=== PATIENT | male | born 1955 | race Caucasian/White ===

== ENCOUNTER 2020-01-31 14:31 | Outpatient (CLI) | payer MEDICARE, OTHER, SELFPAY ==
--- NOTE | 2020-01-31 14:37 | USCV_ITS ---
Rocky Woodward Age: 65 Gender: M : 1955 Exam Date: 01/31/2020 14:46 Ordering Phys: Tu Harris M.D ([email or web address]) Technologist: Jonh Nguyen [place] [facility] [place]: HEART FAILURE BP: 120 / 70 HR: 84 Rhythm: Sinus Technical Quality: Good MEASUREMENTS (Male / Female) Normal Values 2D ECHO LV Diastolic Diameter PLAX 3.4 cm 4.2 - 5.9 / 3.9 - 5.3 cm LV Systolic Diameter PLAX 2.5 cm IVS Diastolic Thickness 0.9 cm 0.6 - 1.0 / 0.6 - 0.9 cm IVS Systolic Thickness 0.9 cm LVPW Diastolic Thickness 0.9 cm 0.6 - 1.0 / 0.6 - 0.9 cm LVPW Systolic Thickness 1.2 cm LVOT Diameter 2.0 cm LV Ejection Fraction 2D Teich 53.3 % LV Ejection Fraction MOD 2C 73.6 % LV Ejection Fraction 2C AL 73.8 % LA Diameter 3.3 cm LA Width 3.1 cm LA Height 3.3 cm RA Width 2.6 cm RA Height 3.2 cm Aorta at Sinotubular Diameter 0.9 cm M-MODE LV Diastolic Diameter MM 4.6 cm 4.2 - 5.9 / 3.9 - 5.3 cm LV Systolic Diameter MM 3.4 cm LV Ejection Fraction MM Teich 52.1 % IVS Diastolic Thickness MM 1.0 cm 0.6 - 1.0 / 0.6 - 0.9 cm IVS Systolic Thickness MM 1.0 cm LVPW Diastolic Thickness MM 0.9 cm 0.6 - 1.0 / 0.6 - 0.9 cm LVPW Systolic Thickness MM 1.5 cm RV Diastolic Diameter MM 1.6 cm Aortic Annulus Diameter 3.3 cm LA Ao Ratio MM 1.0 MV E Point Septal Separation 0.7 cm DOPPLER AV Peak Velocity 159.0 cm/s LVOT Peak Velocity 108.0 cm/s AV Area Cont Eq vti 1.9 cm squared AV Area Cont Eq pk 2.1 cm squared MV Area PHT 3.2 cm squared Mitral E to A Ratio 0.9 MV E' Velocity 13.0 cm/s Mitral E to MV E' Ratio 6.2 Mitral E to LV E' Lateral Ratio 5.3 Mitral E to LV E' Septal Ratio 7.3 TR Peak Velocity 566.0 cm/s TR Peak Gradient 128.3 mmHg TV Peak E Velocity 121.0 cm/s Right Atrial Pressure 3.0 mmHg Pulmonary Artery Systolic Pressu 131.1 mmHg PV Peak Velocity 120.0 cm/s FINDINGS Left Ventricle Normal LV size ejection fraction around 70%. Mild concentric left ventricular hypertrophy. Tethering movement of the septum, possibly from pacing.Grade I/IV diastolic dysfunction (abnormal relaxation filling pattern), normal to mildly elevated filling pressures. Right Ventricle Pacemaker wire in the right ventricle Right Atrium Pacemaker wire is noted Left Atrium Upper limit of normal size Mitral Valve Thickened mitral valve. Trace mitral valve regurgitation. Aortic Valve Thickened aortic valve. Tricuspid Valve No gross abnormalities noted Pulmonic Valve Pulmonic valve not well visualized. Pericardium No pericardial effusion. Aorta Normal aortic annulus size. CONCLUSIONS Normal LV size ejection fraction around 70%. Mild concentric left ventricular hypertrophy. Type I diastolic dysfunction. Tethering movement of the septum, possibly from pacing. Thickened mitral valve. Trace mitral valve regurgitation. There is no pericardial effusion. Dr Dorothea Collins MD FACC (Electronically Signed) Final Date: 31 January 2020 19:01 S
== END 2020-01-31 14:32 | disposition home or self-care (01) ==
LOC: US 14:33
PROVIDERS: PCP Family Medicine; Visit Provider Internal Medicine
DX: I50.9 Heart failure, unspecified (principal); I34.0 Nonrheumatic mitral (valve) insufficiency; I51.7 Cardiomegaly
CPT/HCPCS: 93306

== ENCOUNTER 2020-03-06 07:40 | Outpatient (CLI) | payer MEDICARE, SELFPAY ==
--- NOTE | 2020-03-06 07:55 | CT_ITS ---
WS: [id number] CT scan of the neck. Additional two-dimensional coronal and sagittal reconstruction was performed. Clinical Data: DYSPHAGIA Comparison: None. DLP: 2499.[address] scans at [facility] use at least one of these dose optimization techniques: automat ed exposure control; mA and/or kV adjustment per patient size (includes targeted exams where dose is matched to clinical indication); or iterative reconstruction. Findings: There is a soft tissue mass measuring 3.68 x 4.31 x 5.73 cm in anterior posterior, transverse and sup erior inferior dimensions respectively. This mass is located anterior to the vertebral bodies T1-T3 w ith the superior aspect of the xiphoid marking the midpoint of this mass. This soft tissue mass devia arnoldo the trachea from left to right and compresses it significantly. It also compresses the esophagus. This mass may arise from the left lobe of the thyroid or may invade the left lobe of the thyroid. Th e mass is of mixed density. There are lymph nodes noted in the supraclavicular region but none is enlarged. The salivary glands a re unremarkable. There is no prevertebral soft tissue swelling. The vocal cords are asymmetric. The t hyroid gland shows normal enhancement. The floor of the mouth and parapharyngeal spaces are normal. T he oral cavity is unremarkable. The carotid arteries bifurcate normally with minimal calcification in the cabrera. The cervical spine s hows osteoarthritic change from C3 through C7 with disc space narrowing from C3-C4 through C6-C7. The re is a slight subluxation of 0.2 cm of C4 on C5. The lung apices show no abnormalities. The portions of the intracranial circulation which are seen demonstrate no abnormalities. No erosion of the skull or skull base is seen. CT/CT neck w con* [id number] Impression: 1. Soft tissue mass with greatest dimension of 5.73 cm anterior to the T1-T3 le fransico causing deviation and compression of the trachea and compression of the eso phagus. The origin of this mass is unclear because it does either invade or sherlyn ses from the left lobe of the thyroid. 2. Asymmetry of the vocal cords.
--- NOTE | 2020-03-06 07:56 | CT_ITS ---
WS: [id number] CT scan of the chest with IV contrast, additional two-dimensional coronal and sagittal reconstruction was performed. 03/06/2020 Clinical Data: DYSPHAGIA Comparison: None. DLP: 630.[address] scans at [facility] use at least one of these dose optimization techniques: automat ed exposure control; mA and/or kV adjustment per patient size (includes targeted exams where dose is matched to clinical indication); or iterative reconstruction. Findings: There is a large mass in the superior mediastinum which was noted on the CT scan of the neck. This ma ss is of mixed density. The mass measures 4.44 x 5.14 x 5.16 cm in anterior posterior, transverse and superior-inferior dimensions respectively. The mass is deviating the trachea from left to right and compressing the esophagus. No nodules or effusions are seen. No lung masses are present. The heart size is normal with no perica rdial effusion. There is left coronary artery calcification. There is a 2-lead pacemaker with the gen erator in the right axilla. No pneumonia or pneumothorax is present. The pulmonary arterial system an d thoracic aorta demonstrate no abnormalities or dilatations. There is no axillary or significant med iastinal adenopathy. The upper abdomen shows nonobstructing central right renal calcification. The visualized liver, splee n, adrenal glands and pancreas are unremarkable. Moderate osteoarthritic change of the thoracic verte bral bodies is seen. CT/CT chest w con* [id number] Impression: 1. Superior mediastinal mass anterior to the T1-T3 vertebral body level which i s compressing and deviating the trachea from left to right. The origin of this mass is unclear. This is an atypical location for a thymoma, metastatic lesion or lymphoma. 2. Negative for lung masses. 3. Permanent pacemaker and nonobstructing central right renal calculi.
[2020-03-06] MEDS: iohexol 300 mg/mL 100 mL Btl IV ×2 (09:26→09:27)
== END 2020-03-06 07:41 | disposition home or self-care (01) ==
LOC: RADWPI 07:43
PROVIDERS: Family Provider Family Medicine; PCP Family Medicine; Visit Provider Specialist
DX: R13.10 Dysphagia, unspecified (principal); Z95.0 Presence of cardiac pacemaker; N20.0 Calculus of kidney
CPT/HCPCS: 70491; 71260; Q9967

== ENCOUNTER 2020-03-13 08:09 | Outpatient (CLI) | payer MEDICARE, SELFPAY ==
--- NOTE | 2020-03-13 | CT_ITS ---
WS: [id number] CT HEAD WITH AND WITHOUT CONTRAST HISTORY: PARALYSIS OF VOCAL CORDS TECHNIQUE: Noncontrast 2.5 mm axial images obtained from the vertex to the skull base. Additional elizabeth ging performed at 2.5 mm axial images status post IV contrast. Bone and soft tissue windows are revie wed. All CT scans at [facility] use at least one of these dose optimization techniques: a utomated exposure control; mA and/or kV adjustment per patient size (includes targeted exams where do se is matched to clinical indication); or iterative reconstruction. CONTRAST: Omnipaque 300; 95 mL IV. DLP: 1984.08 mGycm COMPARISON: None available. No acute intracranial hemorrhage, edema or midline shift. Mild atrophy predominantly involving the fr ontal lobes. Very mild microvascular ischemic disease. No prior infarcts. No enhancing mass or vascular malformations identified. Dural venous sinuses are normally enhancing. Visualized [place] is unremarkable. Paranasal sinuses as visualized: Clear. Mastoid air cells: Clear. Calvarium and scalp: Intact. CT/CT head wo/w con [id number] IMPRESSION: 1. No acute intracranial hemorrhage. 2. No mass or vascular malformation. 3. Mild bilateral frontal atrophy. Mild chronic microvascular ischemic disease .
[2020-03-13] MEDS: iohexol 300 mg/mL 100 mL Btl IV (08:52)
== END 2020-03-13 08:10 | disposition home or self-care (01) ==
LOC: RADWPI 08:14
PROVIDERS: Family Provider Family Medicine; PCP Family Medicine; Visit Provider Specialist
DX: J38.01 Paralysis of vocal cords and larynx, unilateral (principal); I67.82 Cerebral ischemia; G31.9 Degenerative disease of nervous system, unspecified
CPT/HCPCS: 70470; Q9967

== ENCOUNTER 2020-03-13 18:28 | Emergency (ER) | payer MEDICARE, SELFPAY ==
[2020-03-13] VITALS (11 sets, daily range): BP systolic 118–153; BP diastolic 49–80; PULSE 63–116; RESP 16–26; TEMP 37; O2SAT 88–96; BMI 19.7
--- NOTE | 2020-03-13 18:34 | XRR_ITS ---
PROCEDURE INFORMATION: Exam: XR Chest, 1 View Exam date and time: 03/13/2020 6:45 PM Age: 65 years old Clinical indication: Prior surgery; Surgery date: 6+ months; Surgery type: Pacemaker; Patient HX: SOB, coughing 2 months TECHNIQUE: Imaging protocol: XR of the chest Views: 1 view. COMPARISON: CT chest w con* [id number] 03/06/2020 9:16 AM FINDINGS: Tubes, catheters and devices: A pacemaker device is present, and its leads are in appropriate position. Lungs: The lungs are hyperinflated with mild interstitial prominence/fibrosis. No consolidation. The pulmonary vascularity is within normal limits. Pleural space: Unremarkable. No pleural effusion. No pneumothorax. Heart/Mediastinum: Unchanged left paratracheal mass/adenopathy is deviating the trachea to the right. No cardiomegaly. Bones/joints: No acute abnormality. XR/XR chest 1V portable [id number] IMPRESSION: 1. The lungs are hyperinflated but clear. 2. Large left paratracheal mass or adenopathy is seen on the CT scan of March 06 is again noted with deviation of the trachea to the right.
--- NOTE | 2020-03-13 18:34 | ECG_ITS ---
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 Measurements Intervals [place] Rate: 81 P: 66 NC: 191 QRS: 83 QRSD: 166 T: 2 QT: 401 QTc: 468 Interpretive Statements A sense V paced rhythm No previous ECG available for comparison Electronically Signed On 03-14-2020 18:01:15 CDT by Renay Yee M.D. [id number]
[2020-03-13 18:55] LABS: Basophils # 0.1 10^3/uL (0.0-0.1); Basophils % 0.6 %; Eosinophils # 0.2 10^3/uL (0.0-0.8); Eosinophils % 1.4 %; Hematocrit 47.9 % (42.0-52.0); Hemoglobin 15.7 g/dL (11.7-16.6); Lymphocytes # 2.8 10^3/uL (0.8-4.8); Lymphocytes % 23.3 %; Mean Corpuscular HGB Conc 32.8 g/dL (30.0-36.0); Mean Corpuscular Hemoglobin 28.4 pg (28.0-34.0); Mean Corpuscular Volume 86.6 fL (80-94); Mean Platelet Volume 9.8 fL (7.4-10.4); Monocytes # 1.8 10^3/uL (0.2-0.9); Monocytes % 14.8 %; Neutrophils # 7.21 10^3/uL (1.8-7.7); Neutrophils % 59.6 %; Nucleated Red Blood Cells % 0 %; Platelet Count 273 10^3/cmm (130-400); Red Blood Count 5.53 10^6/uL (4.1-5.3); Red Cell Distribution Width 13.3 % (12.1-15.1); White Blood Count 12.1 10^3/uL (4.0-10.0)
[2020-03-13 19:48] LABS: Lactic Sepsis W/Reflex 1.6 mmol/L (0.5-2.2)
[2020-03-13 19:50] LABS: Alanine Aminotransferase 11 U/L (0-41); Albumin Level 3.9 g/dL (3.5-5.2); Alkaline Phosphatase 82 IU/L (40-130); Anion Gap 15.1 (5-19); Aspartate Amino Transferase 18 U/L (0-40); Blood Urea Nitrogen 10 mg/dL (8-23); Carbon Dioxide 28 mmol/L (22-29); Chloride 94 mmol/L (98-107); Globulin 2.9 g/dL (1.3-4.6); Glomerular Filtration Rate 113.5 mL/min (90-130); Glucose 145 mg/dL (65-115); Osmolality Calculated 278 mOsm/kg (285-295); Potassium 4.1 mmol/L (3.5-5.1); Sodium 133 mmol/L (136-145); Total Bilirubin 0.3 mg/dL (0.15-1.2); Total Protein 6.8 g/dL (6.6-8.7)
[2020-03-13 19:51] LABS: Troponin(5th) Baseline 8 ng/L (0-15)
[2020-03-13 20:31] LABS: ABG PCO2 47.3 mmHg (35-45); Arterial Blood Gas Hematocrit 46.8 % (42-52); Base Excess ABG 3.2 mmol/L (-2.0-2.0); Blood Gas Allen Test Pos; Blood Gas Sample Type Arterial; Carboxyhemoglobin 3.5 %THgb (0.4-20.1); HGB O2 Sat 95.3 % (95-100); Ionized Calcium Level - ABG 1.2 mmol/L (1.1-1.4); Methemoglobin 0.7 % (0.4-1.5); Oxygen Saturation ABG 99.5; Potassium Level - ABG 4.5 mmol/L (3.5-5.0); Total Hemoglobin 15.3 g/dL (14-18)
[2020-03-13 20:32] LABS: Blood Gas Sample Site Brachial, right; Oxygen Device NC
--- NOTE | 2020-03-13 20:34 | ECG_ITS ---
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 Measurements Intervals [place] Rate: 69 P: 63 NH: 185 QRS: -5 QRSD: 153 T: 17 QT: 418 QTc: 450 Interpretive Statements ELECTRONIC ATRIAL PACEMAKER ELECTRONIC VENTRICULAR PACEMAKER No previous ECG available for comparison Electronically Signed On 03-14-2020 18:11:59 CDT by Renay Yee M.D. [id number]
--- NOTE | 2020-03-13 20:41 | W.ED.SOB ---
Documented by User: Kaylie Drake MD 03/15/20 11:32 HPI - SOB/Dyspnea General: Chief Complaint: Shortness of Breath/Dyspnea Stated Complaint: ACUTE RESP DISTRESS Time Seen by Provider: 03/13/20 18:44 History of Present Illness: HPI Narrative: This patient is a 65-year-old gentleman comes in today with shortness of breath. He has been having increasing shortness of breath over a month or more. He saw Dr. 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 He has had CTs and has more imaging scheduled. He has not followed up yet after the CTs were done. He has a history of sick sinus syndrome and has pacemaker on the right side. He denies any other medical history. He is a smoker but said he is never been told that he had COPD. He does have some inhalers but said they have not been helping. The last couple of days have been really bad with his breathing. MD elicited complaint: shortness of breath Onset (ago): week(s) (2) Associated symptoms: Deny abdominal pain, chest pain, fever(s), nausea or vomiting Review of Systems General: Reports: 10 or more systems reviewed and unremarkable except in HPI and below Const: Denies: fever(s), chills, fatigue or malaise Eyes: Denies: change in vision ENMT: Denies: odynophagia Card: Denies: chest pain or swelling of feet/ankles Resp: Reports: dyspnea, productive cough, wheezing and pain on inspiration; Denies: non-productive cough GI: Denies: abdominal pain, nausea or vomiting : Denies: flank pain Musc: Denies: neck pain or back pain Skin/Breast: Denies: rash Neuro: Denies: headache(s), numbness in extremities or weakness in extremities Elliot/Lymph: Denies: easy bruising or easy bleeding PFSH ED PFSH: Medical History Congestive heart failure History of hypertension History of pacemaker Hx of smoking Hypertension Tobacco abuse Surgical History History of permanent cardiac pacemaker placement Physical Exam Const: COMMON NORMALS: patient oriented x3 and alert GENERAL APPEARANCE: cooperative and anxious NUTRITIONAL APPEARANCE: thin HENMT: HEAD & SCALP: normal to inspection FACE & SINUS: normal facial exam Eye: GENERAL EYE: appearance normal, both eyes and all related structures Neck/C-Spine: COMMON NORMALS: supple, no meningeal signs and no JVD GENERAL: Yes normal visual inspection and Yes trachea midline Chest: COMMONS NORMALS: normal inspection of the chest Resp: COMMON NORMALS: clear to auscultation bilaterally EFFORT & INSPECTION: Yes tachypneic, Yes respiratory distress, Yes labored, Yes stridor, Yes Actively coughing and Yes uses accessory muscles AUSCULTATION: clear to auscultation bilaterally Cardio: COMMON NORMALS: no JVD, regular rate, regular rhythm and No murmurs present (Cardio) RATE: regular rate RHYTHM: regular rhythm GI: COMMON NORMALS: Normal to inspection, nondistended, normoactive bowel sounds present, Soft to palpation and non-tender INSPECTION: Yes normal to inspection AUSCULTATION: Yes normoactive bowel sounds PALPATION: Yes Soft to palpation Back/Pelvis: COMMON NORMALS: thoracic and lumbar spine normal to inspection Extremity: COMMON NORMALS: normal to inspection Neuro: COMMON NORMALS: patient oriented x3, moves all extremities, no focal motor deficits and no sensory deficits noted SENSORIUM/ORIENTATION: Yes alert MENINGEAL SIGNS: Yes no meningeal signs Psych: COMMON NORMALS: mental status grossly normal, cooperative and normal affect Skin: COMMON NORMALS: no rashes or lesions noted and turgor normal GENERAL SKIN EXAM: no rashes or lesions noted and turgor normal Course ED course: This patient presented with sats in the high 80s to 90 on room air. On a couple liters of oxygen he is 92 to 94%. He is in obvious distress. He is able to talk but has a very hoarse sounding voice. He is having coughing with thick mucus that is difficult for him to clear. 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 I spoke with Dr. Rojas, who had ordered the CTs. He is an ENT physician and because of the location of the mass is not able to help me today. He recommended finding CT surgery to help. Our CT surgeon is not available this weekend. We will call around and try to find a bed. Reevaluation(s): Reevaluation #1: After multiple calls to multiple hospitals, I spoke with Dr. Chante Jc at [facility] [place]. He is a CT surgeon and felt that he could accept the patient but not until the morning when he would have a sheet rocker available to intubate the patient for procedure such as biopsy or radiation. He will call us back in the morning if he is able to secure pulmonary backup and if there is a bed available at that time. In the meanwhile we will continue looking for a facility but it is unlikely at this point that we will find one. Vital Signs: Vital signs: Vital Signs Temperature 98.1 F 03/14/20 06:50 Pulse Rate 95 03/14/20 09:26 Respiratory Rate 18 03/14/20 09:26 Blood Pressure 123/74 03/14/20 09:26 Pulse Oximetry 95 03/14/20 09:26 MDM - SOB/Dyspnea Lab Data: Labs: Lab Results 03/13/20 03/13/20 03/13/20 Range/Units 18:43 18:43 18:43 WBC 12.1 H (4.0-10.0) 10^3/ uL RBC 5.53 H (4.1-5.3) 10^6/u L Hgb 15.7 (11.7-16.6) g/dL Hct 47.9 (42.0-52.0) % MCV 86.6 (80-94) fL MCH 28.4 (28.0-34.0) pg MCHC 32.8 (30.0-36.0) g/dL RDW 13.3 (12.1-15.1) % Plt Count 273 (130-400) 10^3/c mm MPV 9.8 (7.4-10.4) fL Neut % (Auto) 59.6 % Lymph % (Auto) 23.3 % [place] % (Auto) 14.8 % Eos % (Auto) 1.4 % Baso % (Auto) 0.6 % Neut # (Auto) 7.21 (1.8-7.7) 10^3/u L Lymph # (Auto) 2.8 (0.8-4.8) 10^3/u L [place] # (Auto) 1.8 H (0.2-0.9) 10^3/u L Eos # (Auto) 0.2 (0.0-0.8) 10^3/u L Baso # (Auto) 0.1 (0.0-0.1) 10^3/u L Nucleated RBC % (a uto) 0 % Nucleated RBCs # 0.0 /100WBC Specimen Type Sample Site ABG pH (7.35-7.45) ABG pCO2 (35-45) mmHg ABG pO2 (80.0-100.0) mmH g ABG HCO3 (22-26) mmol/L ABG O2 Saturation ABG Base Excess (-2.0-2.0) mmol/ L Jin Test Hematocrit (42-52) % Hgb O2 Saturation (95-100) % Carboxyhemoglobin (0.4-20.1) %THgb Methemoglobin (0.4-1.5) % Total Hemoglobin (14-18) g/dL Ionized Calcium (1.1-1.4) mmol/L O2 Delivery Device O2 Liters/Min % Operations Inspector ID Sodium Cancelled Potassium Cancelled Chloride Cancelled Carbon Dioxide Cancelled Anion Gap Cancelled BUN Cancelled Creatinine Cancelled GFR Calculation Cancelled Glucose Cancelled Calculated Osmolal ity Cancelled Lactic Acid Calcium Cancelled Total Bilirubin Cancelled AST Cancelled ALT Cancelled Alkaline Phosphata se Cancelled Troponin T Baselin e Cancelled Troponin T [address] [place] (0-15) ng/L Delta Troponin T (0-10) ABS# Troponin T Hi Sens 6Hr (0-15) ng/L Troponin T Hi Sens 6Hr Delta (0-12) ng/L Total Protein Cancelled Albumin Cancelled Globulin Cancelled SARS-CoV-2 Ag (Rap id) (Negative) 03/13/20 03/13/20 03/13/20 Range/Units 18:43 19:14 19:14 WBC (4.0-10.0) 10^3/ uL RBC (4.1-5.3) 10^6/u L Hgb (11.7-16.6) g/dL Hct (42.0-52.0) % MCV (80-94) fL MCH (28.0-34.0) pg MCHC (30.0-36.0) g/dL RDW (12.1-15.1) % Plt Count (130-400) 10^3/c mm MPV (7.4-10.4) fL Neut % (Auto) % Lymph % (Auto) % [place] % (Auto) % Eos % (Auto) % Baso % (Auto) % Neut # (Auto) (1.8-7.7) 10^3/u L Lymph # (Auto) (0.8-4.8) 10^3/u L [place] # (Auto) (0.2-0.9) 10^3/u L Eos # (Auto) (0.0-0.8) 10^3/u L Baso # (Auto) (0.0-0.1) 10^3/u L Nucleated RBC % (a uto) % Nucleated RBCs # /100WBC Specimen Type Sample Site ABG pH (7.35-7.45) ABG pCO2 (35-45) mmHg ABG pO2 (80.0-100.0) mmH g ABG HCO3 (22-26) mmol/L ABG O2 Saturation ABG Base Excess (-2.0-2.0) mmol/ L Jin Test Hematocrit (42-52) % Hgb O2 Saturation (95-100) % Carboxyhemoglobin (0.4-20.1) %THgb Methemoglobin (0.4-1.5) % Total Hemoglobin (14-18) g/dL Ionized Calcium (1.1-1.4) mmol/L O2 Delivery Device O2 Liters/Min % Operations Inspector ID Sodium 133 L Potassium 4.1 Chloride 94 L Carbon Dioxide 28 Anion Gap 15.1 BUN 10 Creatinine 0.7 GFR Calculation 113.5 Glucose 145 H Calculated Osmolal ity 278 L Lactic Acid Cancelled Calcium 9.0 Total Bilirubin 0.3 AST 18 ALT 11 Alkaline Phosphata se 82 Troponin T Baselin e 8 Troponin T [address] [place] (0-15) ng/L Delta Troponin T (0-10) ABS# Troponin T Hi Sens 6Hr (0-15) ng/L Troponin T Hi Sens 6Hr Delta (0-12) ng/L Total Protein 6.8 Albumin 3.9 Globulin 2.9 SARS-CoV-2 Ag (Rap id) (Negative) 03/13/20 03/13/20 03/13/20 Range/Units 19:14 20:20 21:08 WBC (4.0-10.0) 10^3/ uL RBC (4.1-5.3) 10^6/u L Hgb (11.7-16.6) g/dL Hct (42.0-52.0) % MCV (80-94) fL MCH (28.0-34.0) pg MCHC (30.0-36.0) g/dL RDW (12.1-15.1) % Plt Count (130-400) 10^3/c mm MPV (7.4-10.4) fL Neut % (Auto) % Lymph % (Auto) % [place] % (Auto) % Eos % (Auto) % Baso % (Auto) % Neut # (Auto) (1.8-7.7) 10^3/u L Lymph # (Auto) (0.8-4.8) 10^3/u L [place] # (Auto) (0.2-0.9) 10^3/u L Eos # (Auto) (0.0-0.8) 10^3/u L Baso # (Auto) (0.0-0.1) 10^3/u L Nucleated RBC % (a uto) % Nucleated RBCs # /100WBC Specimen Type Arterial Sample Site Brachial, right ABG pH 7.40 (7.35-7.45) ABG pCO2 47.3 H (35-45) mmHg ABG pO2 129.0 H (80.0-100.0) mmH g ABG HCO3 29.0 H (22-26) mmol/L ABG O2 Saturation 99.5 ABG Base Excess 3.2 H (-2.0-2.0) mmol/ L Jin Test Pos Hematocrit 46.8 (42-52) % Hgb O2 Saturation 95.3 (95-100) % Carboxyhemoglobin 3.5 (0.4-20.1) %THgb Methemoglobin 0.7 (0.4-1.5) % Total Hemoglobin 15.3 (14-18) g/dL Ionized Calcium 1.2 (1.1-1.4) mmol/L O2 Delivery Device Nc O2 Liters/Min 3.0 % Operations Inspector ID Jlg Sodium 135.0 Potassium 4.5 Chloride Carbon Dioxide Anion Gap BUN Creatinine GFR Calculation Glucose 123.0 H Calculated Osmolal ity Lactic Acid 1.6 Calcium Total Bilirubin AST ALT Alkaline Phosphata se Troponin T Baselin e Troponin T [address] [place] 6.52 (0-15) ng/L Delta Troponin T -1.48 L (0-10) ABS# Troponin T Hi Sens 6Hr (0-15) ng/L Troponin T Hi Sens 6Hr Delta (0-12) ng/L Total Protein Albumin Globulin SARS-CoV-2 Ag (Rap id) (Negative) 03/13/20 03/14/20 Range/Units 23:10 00:25 WBC (4.0-10.0) 10^3/ uL RBC (4.1-5.3) 10^6/u L Hgb (11.7-16.6) g/dL Hct (42.0-52.0) % MCV (80-94) fL MCH (28.0-34.0) pg MCHC (30.0-36.0) g/dL RDW (12.1-15.1) % Plt Count (130-400) 10^3/c mm MPV (7.4-10.4) fL Neut % (Auto) % Lymph % (Auto) % [place] % (Auto) % Eos % (Auto) % Baso % (Auto) % Neut # (Auto) (1.8-7.7) 10^3/u L Lymph # (Auto) (0.8-4.8) 10^3/u L [place] # (Auto) (0.2-0.9) 10^3/u L Eos # (Auto) (0.0-0.8) 10^3/u L Baso # (Auto) (0.0-0.1) 10^3/u L Nucleated RBC % (a uto) % Nucleated RBCs # /100WBC Specimen Type Sample Site ABG pH (7.35-7.45) ABG pCO2 (35-45) mmHg ABG pO2 (80.0-100.0) mmH g ABG HCO3 (22-26) mmol/L ABG O2 Saturation ABG Base Excess (-2.0-2.0) mmol/ L Jin Test Hematocrit (42-52) % Hgb O2 Saturation (95-100) % Carboxyhemoglobin (0.4-20.1) %THgb Methemoglobin (0.4-1.5) % Total Hemoglobin (14-18) g/dL Ionized Calcium (1.1-1.4) mmol/L O2 Delivery Device O2 Liters/Min % Operations Inspector ID Sodium Potassium Chloride Carbon Dioxide Anion Gap BUN Creatinine GFR Calculation Glucose Calculated Osmolal ity Lactic Acid Calcium Total Bilirubin AST ALT Alkaline Phosphata se Troponin T Baselin e Troponin T [address] [place] (0-15) ng/L Delta Troponin T (0-10) ABS# Troponin T Hi Sens 6Hr 6.00 (0-15) ng/L Troponin T Hi Sens 6Hr Delta -2.00 L (0-12) ng/L Total Protein Albumin Globulin SARS-CoV-2 Ag (Rap id) Negative (Negative) Discharge Plan Discharge Patient Disposition: Xfer Other Referrals: Ariel Miller MD [Primary Care Provider] - Discharge Date/Time: 03/14/20 09:32 Sign Out Sign Out Data: Patient Sign Out occurred on 03/14/20 at 00:16. Patient's care was discussed, and care was transferred from to Kelly Bradshaw. Patient Sign Out occurred on 03/14/20 at 06:42. Patient's care was discussed, and care was transferred from Kelly Bradshaw to Lee Mathew DO. Sign Out Comment: Case turned over to Dr. Mathew at change of shift. Last updated by Kelly Bradshaw at 03/14/20 05:46 Coding Level of Care Code ED Production Boring Machine Operator for Chg Fwd Exam Comprehensive Documented by User: Kelly Bradshaw 03/14/20 05:06 HPI - SOB/Dyspnea General: Chief Complaint: Shortness of Breath/Dyspnea Stated Complaint: ACUTE RESP DISTRESS Time Seen by Provider: 03/13/20 18:44 PFSH ED PFSH: Medical History Congestive heart failure History of hypertension History of pacemaker Hx of smoking Hypertension Tobacco abuse Surgical History History of permanent cardiac pacemaker placement Course ED course: 0505 -patient was signed out to me from Dr. Drake. Please see her note for history, physical exam and medical decision-making notes. At the time of my evaluation the patient still has rhonchorous lung sounds but his vital signs are stable and on the oxygen mask his pulse ox is 92%. Blood pressure is good and he is not tachycardic. He denies any pains, chills or ill feelings. He is asking for a breakfast tray this morning which I will arrange. Patient's care be turned over to Dr. Mathew this morning with the plan still to transfer to [facility] once the cardiothoracic surgeon arrange for the appropriate bed and backup. Vital Signs: Vital signs: Vital Signs Temperature 98.1 F 03/14/20 06:50 Pulse Rate 95 03/14/20 09:26 Respiratory Rate 18 03/14/20 09:26 Blood Pressure 123/74 03/14/20 09:26 Pulse Oximetry 95 03/14/20 09:26 MDM - SOB/Dyspnea Lab Data: Labs: Lab Results 03/13/20 03/13/20 03/13/20 Range/Units 18:43 18:43 18:43 WBC 12.1 H (4.0-10.0) 10^3/ uL RBC 5.53 H (4.1-5.3) 10^6/u L Hgb 15.7 (11.7-16.6) g/dL Hct 47.9 (42.0-52.0) % MCV 86.6 (80-94) fL MCH 28.4 (28.0-34.0) pg MCHC 32.8 (30.0-36.0) g/dL RDW 13.3 (12.1-15.1) % Plt Count 273 (130-400) 10^3/c mm MPV 9.8 (7.4-10.4) fL Neut % (Auto) 59.6 % Lymph % (Auto) 23.3 % [place] % (Auto) 14.8 % Eos % (Auto) 1.4 % Baso % (Auto) 0.6 % Neut # (Auto) 7.21 (1.8-7.7) 10^3/u L Lymph # (Auto) 2.8 (0.8-4.8) 10^3/u L [place] # (Auto) 1.8 H (0.2-0.9) 10^3/u L Eos # (Auto) 0.2 (0.0-0.8) 10^3/u L Baso # (Auto) 0.1 (0.0-0.1) 10^3/u L Nucleated RBC % (a uto) 0 % Nucleated RBCs # 0.0 /100WBC Specimen Type Sample Site ABG pH (7.35-7.45) ABG pCO2 (35-45) mmHg ABG pO2 (80.0-100.0) mmH g ABG HCO3 (22-26) mmol/L ABG O2 Saturation ABG Base Excess (-2.0-2.0) mmol/ L Jin Test Hematocrit (42-52) % Hgb O2 Saturation (95-100) % Carboxyhemoglobin (0.4-20.1) %THgb Methemoglobin (0.4-1.5) % Total Hemoglobin (14-18) g/dL Ionized Calcium (1.1-1.4) mmol/L O2 Delivery Device O2 Liters/Min % Operations Inspector ID Sodium Cancelled Potassium Cancelled Chloride Cancelled Carbon Dioxide Cancelled Anion Gap Cancelled BUN Cancelled Creatinine Cancelled GFR Calculation Cancelled Glucose Cancelled Calculated Osmolal ity Cancelled Lactic Acid Calcium Cancelled Total Bilirubin Cancelled AST Cancelled ALT Cancelled Alkaline Phosphata se Cancelled Troponin T Baselin e Cancelled Troponin T [address] [place] (0-15) ng/L Delta Troponin T (0-10) ABS# Troponin T Hi Sens 6Hr (0-15) ng/L Troponin T Hi Sens 6Hr Delta (0-12) ng/L Total Protein Cancelled Albumin Cancelled Globulin Cancelled SARS-CoV-2 Ag (Rap id) (Negative) 03/13/20 03/13/20 03/13/20 Range/Units 18:43 19:14 19:14 WBC (4.0-10.0) 10^3/ uL RBC (4.1-5.3) 10^6/u L Hgb (11.7-16.6) g/dL Hct (42.0-52.0) % MCV (80-94) fL MCH (28.0-34.0) pg MCHC (30.0-36.0) g/dL RDW (12.1-15.1) % Plt Count (130-400) 10^3/c mm MPV (7.4-10.4) fL Neut % (Auto) % Lymph % (Auto) % [place] % (Auto) % Eos % (Auto) % Baso % (Auto) % Neut # (Auto) (1.8-7.7) 10^3/u L Lymph # (Auto) (0.8-4.8) 10^3/u L [place] # (Auto) (0.2-0.9) 10^3/u L Eos # (Auto) (0.0-0.8) 10^3/u L Baso # (Auto) (0.0-0.1) 10^3/u L Nucleated RBC % (a uto) % Nucleated RBCs # /100WBC Specimen Type Sample Site ABG pH (7.35-7.45) ABG pCO2 (35-45) mmHg ABG pO2 (80.0-100.0) mmH g ABG HCO3 (22-26) mmol/L ABG O2 Saturation ABG Base Excess (-2.0-2.0) mmol/ L Jin Test Hematocrit (42-52) % Hgb O2 Saturation (95-100) % Carboxyhemoglobin (0.4-20.1) %THgb Methemoglobin (0.4-1.5) % Total Hemoglobin (14-18) g/dL Ionized Calcium (1.1-1.4) mmol/L O2 Delivery Device O2 Liters/Min % Operations Inspector ID Sodium 133 L Potassium 4.1 Chloride 94 L Carbon Dioxide 28 Anion Gap 15.1 BUN 10 Creatinine 0.7 GFR Calculation 113.5 Glucose 145 H Calculated Osmolal ity 278 L Lactic Acid Cancelled Calcium 9.0 Total Bilirubin 0.3 AST 18 ALT 11 Alkaline Phosphata se 82 Troponin T Baselin e 8 Troponin T [address] [place] (0-15) ng/L Delta Troponin T (0-10) ABS# Troponin T Hi Sens 6Hr (0-15) ng/L Troponin T Hi Sens 6Hr Delta (0-12) ng/L Total Protein 6.8 Albumin 3.9 Globulin 2.9 SARS-CoV-2 Ag (Rap id) (Negative) 10/09/20 10/09/20 10/09/20 Range/Units 19:14 20:20 21:08 WBC (4.0-10.0) 10^3/ uL RBC (4.1-5.3) 10^6/u L Hgb (11.7-16.6) g/dL Hct (42.0-52.0) % MCV (80-94) fL MCH (28.0-34.0) pg MCHC (30.0-36.0) g/dL RDW (12.1-15.1) % Plt Count (130-400) 10^3/c mm MPV (7.4-10.4) fL Neut % (Auto) % Lymph % (Auto) % [place] % (Auto) % Eos % (Auto) % Baso % (Auto) % Neut # (Auto) (1.8-7.7) 10^3/u L Lymph # (Auto) (0.8-4.8) 10^3/u L [place] # (Auto) (0.2-0.9) 10^3/u L Eos # (Auto) (0.0-0.8) 10^3/u L Baso # (Auto) (0.0-0.1) 10^3/u L Nucleated RBC % (a uto) % Nucleated RBCs # /100WBC Specimen Type Arterial Sample Site Brachial, right ABG pH 7.40 (7.35-7.45) ABG pCO2 47.3 H (35-45) mmHg ABG pO2 129.0 H (80.0-100.0) mmH g ABG HCO3 29.0 H (22-26) mmol/L ABG O2 Saturation 99.5 ABG Base Excess 3.2 H (-2.0-2.0) mmol/ L Jin Test Pos Hematocrit 46.8 (42-52) % Hgb O2 Saturation 95.3 (95-100) % Carboxyhemoglobin 3.5 (0.4-20.1) %THgb Methemoglobin 0.7 (0.4-1.5) % Total Hemoglobin 15.3 (14-18) g/dL Ionized Calcium 1.2 (1.1-1.4) mmol/L O2 Delivery Device Nc O2 Liters/Min 3.0 % Operations Inspector ID Jlg Sodium 135.0 Potassium 4.5 Chloride Carbon Dioxide Anion Gap BUN Creatinine GFR Calculation Glucose 123.0 H Calculated Osmolal ity Lactic Acid 1.6 Calcium Total Bilirubin AST ALT Alkaline Phosphata se Troponin T Baselin e Troponin T [address] [place] 6.52 (0-15) ng/L Delta Troponin T -1.48 L (0-10) ABS# Troponin T Hi Sens 6Hr (0-15) ng/L Troponin T Hi Sens 6Hr Delta (0-12) ng/L Total Protein Albumin Globulin SARS-CoV-2 Ag (Rap id) (Negative) 03/13/20 03/14/20 Range/Units 23:10 00:25 WBC (4.0-10.0) 10^3/ uL RBC (4.1-5.3) 10^6/u L Hgb (11.7-16.6) g/dL Hct (42.0-52.0) % MCV (80-94) fL MCH (28.0-34.0) pg MCHC (30.0-36.0) g/dL RDW (12.1-15.1) % Plt Count (130-400) 10^3/c mm MPV (7.4-10.4) fL Neut % (Auto) % Lymph % (Auto) % [place] % (Auto) % Eos % (Auto) % Baso % (Auto) % Neut # (Auto) (1.8-7.7) 10^3/u L Lymph # (Auto) (0.8-4.8) 10^3/u L [place] # (Auto) (0.2-0.9) 10^3/u L Eos # (Auto) (0.0-0.8) 10^3/u L Baso # (Auto) (0.0-0.1) 10^3/u L Nucleated RBC % (a uto) % Nucleated RBCs # /100WBC Specimen Type Sample Site ABG pH (7.35-7.45) ABG pCO2 (35-45) mmHg ABG pO2 (80.0-100.0) mmH g ABG HCO3 (22-26) mmol/L ABG O2 Saturation ABG Base Excess (-2.0-2.0) mmol/ L Jin Test Hematocrit (42-52) % Hgb O2 Saturation (95-100) % Carboxyhemoglobin (0.4-20.1) %THgb Methemoglobin (0.4-1.5) % Total Hemoglobin (14-18) g/dL Ionized Calcium (1.1-1.4) mmol/L O2 Delivery Device O2 Liters/Min % Operations Inspector ID Sodium Potassium Chloride Carbon Dioxide Anion Gap BUN Creatinine GFR Calculation Glucose Calculated Osmolal ity Lactic Acid Calcium Total Bilirubin AST ALT Alkaline Phosphata se Troponin T Baselin e Troponin T [address] [place] (0-15) ng/L Delta Troponin T (0-10) ABS# Troponin T Hi Sens 6Hr 6.00 (0-15) ng/L Troponin T Hi Sens 6Hr Delta -2.00 L (0-12) ng/L Total Protein Albumin Globulin SARS-CoV-2 Ag (Rap id) Negative (Negative) Discharge Plan Discharge Patient Disposition: Xfer Other Referrals: Ariel Miller MD [Primary Care Provider] - Discharge Date/Time: 03/14/20 09:32 Sign Out Sign Out Data: Patient Sign Out occurred on 03/14/20 at 00:16. Patient's care was discussed, and care was transferred from to Kelly Bradshaw. Patient Sign Out occurred on 03/14/20 at 06:42. Patient's care was discussed, and care was transferred from Kelly Bradshaw to Lee Mathew DO. Sign Out Comment: Case turned over to Dr. Mathew at change of shift. Last updated by Kelly Bradshaw at 03/14/20 05:46 Coding Level of Care Code ED Production Boring Machine Operator for Chg Fwd Exam Comprehensive Documented by User: Lee Mathew DO 03/14/20 10:00 HPI - SOB/Dyspnea General: Chief Complaint: Shortness of Breath/Dyspnea Stated Complaint: ACUTE RESP DISTRESS Time Seen by Provider: 03/13/20 18:44 PFSH ED PFSH: Medical History Congestive heart failure History of hypertension History of pacemaker Hx of smoking Hypertension Tobacco abuse Surgical History History of permanent cardiac pacemaker placement Procedures Intubation Time out performed: Yes sedative: Etomidate Mg Given: 20 paralytic: Succinylcholine Mg Given: 60 Laryngoscope: fiber optic video scope Assist Device Used: fiber optic device ET Tube Size: 6.5 ET Tube Uncuffed: No Tube Secured Depth (cm): 27 Tube Secured Location: teeth Tube Placement Confirmation: visualized tube passing through cords, equal breath sounds bilaterally, no breath sounds over epigastrium and confirmation by capnometry Patient Tolerated Procedure: well Intubation Complications: difficult intubation Additional Comments: Patient is a mediastinal mass. I reviewed the CT findings done previously prior to intubation the opening was to the right. We initially went to the smallest potential ET tube in order to make sure that we passed through the mass without disturbing it too much. At the first attempt were able to ventilate with the ET tube was caught at the level of the clavicles consistent with a mass. On the chest x-ray it was deviated to the right as expected. Ventilator was disconnected and a bougie tube passed through the ET tube was then able to push the ET tube past the mass and reinflate the cuff. On repeat x-ray there is significant deviation of the ET tube consistent with a level of the mass the tip of the ET tube is 2 cm above the anuel. It is somewhat deeper than I would normally leave an ET tube however given the mass and the fact that he was very well ventilated with this position we left it in place. After intubation he did exhibit signs of seizure for which he was given Ativan and 2 mg twice given the thousand milligrams of Keppra. He was given a propofol bolus initially which did drop his pressures propofol was stopped and then reinitiated at a lower rate. He was given vecuronium in the interval. At the time of transport he was well sedated no signs of any further seizures however he was completely paralyzed he will need further evaluation for this. Course Vital Signs: Vital signs: Vital Signs Temperature 98.1 F 03/14/20 06:50 Pulse Rate 95 03/14/20 09:26 Respiratory Rate 18 03/14/20 09:26 Blood Pressure 123/74 03/14/20 09:26 Pulse Oximetry 95 03/14/20 09:26 MDM - SOB/Dyspnea MDM Narrative: Medical decision making narrative: Turned over to me at change of shift. 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 This morning he is doing well. They had plan to transfer the patient to [facility], [place] however I have called back and informed us that there are no available beds. Will begin looking for another potential transfer hospital. Continue to monitor the patient. Discussion with the patient. Discussed with Dr. Abernathy from [facility]. They will accept the patient were going to electively intubate him prior to transportation shunt to make sure that his airway remains controlled. Discussed with the pt - he agrees to go forward with intubation. See intubation note above. He did develop seizures after intubation what appeared to be seizures he was given Ativan and Keppra. At time of transfer he was well sedated. We did get some blood on suctioning from the ET tube suspect that is from irritation to the mass. An OG tube was not placed due to concern that it would either coil above the mass since it is also impinging on the esophagus or worse may perforate the esophagus if the masses we can the esophageal wall. He was never ventilated with a bag valve mask and has no evidence of distention of the stomach with air so I do not think an OG tube at this time is necessary. It may be placed at a later time. We will call and discuss with the receiving physician at [facility]. Lab Data: Labs: Lab Results 03/13/20 03/13/20 03/13/20 Range/Units 18:43 18:43 18:43 WBC 12.1 H (4.0-10.0) 10^3/ uL RBC 5.53 H (4.1-5.3) 10^6/u L Hgb 15.7 (11.7-16.6) g/dL Hct 47.9 (42.0-52.0) % MCV 86.6 (80-94) fL MCH 28.4 (28.0-34.0) pg MCHC 32.8 (30.0-36.0) g/dL RDW 13.3 (12.1-15.1) % Plt Count 273 (130-400) 10^3/c mm MPV 9.8 (7.4-10.4) fL Neut % (Auto) 59.6 % Lymph % (Auto) 23.3 % [place] % (Auto) 14.8 % Eos % (Auto) 1.4 % Baso % (Auto) 0.6 % Neut # (Auto) 7.21 (1.8-7.7) 10^3/u L Lymph # (Auto) 2.8 (0.8-4.8) 10^3/u L [place] # (Auto) 1.8 H (0.2-0.9) 10^3/u L Eos # (Auto) 0.2 (0.0-0.8) 10^3/u L Baso # (Auto) 0.1 (0.0-0.1) 10^3/u L Nucleated RBC % (a uto) 0 % Nucleated RBCs # 0.0 /100WBC Specimen Type Sample Site ABG pH (7.35-7.45) ABG pCO2 (35-45) mmHg ABG pO2 (80.0-100.0) mmH g ABG HCO3 (22-26) mmol/L ABG O2 Saturation ABG Base Excess (-2.0-2.0) mmol/ L Jin Test Hematocrit (42-52) % Hgb O2 Saturation (95-100) % Carboxyhemoglobin (0.4-20.1) %THgb Methemoglobin (0.4-1.5) % Total Hemoglobin (14-18) g/dL Ionized Calcium (1.1-1.4) mmol/L O2 Delivery Device O2 Liters/Min % Operations Inspector ID Sodium Cancelled Potassium Cancelled Chloride Cancelled Carbon Dioxide Cancelled Anion Gap Cancelled BUN Cancelled Creatinine Cancelled GFR Calculation Cancelled Glucose Cancelled Calculated Osmolal ity Cancelled Lactic Acid Calcium Cancelled Total Bilirubin Cancelled AST Cancelled ALT Cancelled Alkaline Phosphata se Cancelled Troponin T Baselin e Cancelled Troponin T [address] [place] (0-15) ng/L Delta Troponin T (0-10) ABS# Troponin T Hi Sens 6Hr (0-15) ng/L Troponin T Hi Sens 6Hr Delta (0-12) ng/L Total Protein Cancelled Albumin Cancelled Globulin Cancelled SARS-CoV-2 Ag (Rap id) (Negative) 03/13/20 03/13/20 03/13/20 Range/Units 18:43 19:14 19:14 WBC (4.0-10.0) 10^3/ uL RBC (4.1-5.3) 10^6/u L Hgb (11.7-16.6) g/dL Hct (42.0-52.0) % MCV (80-94) fL MCH (28.0-34.0) pg MCHC (30.0-36.0) g/dL RDW (12.1-15.1) % Plt Count (130-400) 10^3/c mm MPV (7.4-10.4) fL Neut % (Auto) % Lymph % (Auto) % [place] % (Auto) % Eos % (Auto) % Baso % (Auto) % Neut # (Auto) (1.8-7.7) 10^3/u L Lymph # (Auto) (0.8-4.8) 10^3/u L [place] # (Auto) (0.2-0.9) 10^3/u L Eos # (Auto) (0.0-0.8) 10^3/u L Baso # (Auto) (0.0-0.1) 10^3/u L Nucleated RBC % (a uto) % Nucleated RBCs # /100WBC Specimen Type Sample Site ABG pH (7.35-7.45) ABG pCO2 (35-45) mmHg ABG pO2 (80.0-100.0) mmH g ABG HCO3 (22-26) mmol/L ABG O2 Saturation ABG Base Excess (-2.0-2.0) mmol/ L Jin Test Hematocrit (42-52) % Hgb O2 Saturation (95-100) % Carboxyhemoglobin (0.4-20.1) %THgb Methemoglobin (0.4-1.5) % Total Hemoglobin (14-18) g/dL Ionized Calcium (1.1-1.4) mmol/L O2 Delivery Device O2 Liters/Min % Operations Inspector ID Sodium 133 L Potassium 4.1 Chloride 94 L Carbon Dioxide 28 Anion Gap 15.1 BUN 10 Creatinine 0.7 GFR Calculation 113.5 Glucose 145 H Calculated Osmolal ity 278 L Lactic Acid Cancelled Calcium 9.0 Total Bilirubin 0.3 AST 18 ALT 11 Alkaline Phosphata se 82 Troponin T Baselin e 8 Troponin T [address] [place] (0-15) ng/L Delta Troponin T (0-10) ABS# Troponin T Hi Sens 6Hr (0-15) ng/L Troponin T Hi Sens 6Hr Delta (0-12) ng/L Total Protein 6.8 Albumin 3.9 Globulin 2.9 SARS-CoV-2 Ag (Rap id) (Negative) 03/13/20 03/13/20 03/13/20 Range/Units 19:14 20:20 21:08 WBC (4.0-10.0) 10^3/ uL RBC (4.1-5.3) 10^6/u L Hgb (11.7-16.6) g/dL Hct (42.0-52.0) % MCV (80-94) fL MCH (28.0-34.0) pg MCHC (30.0-36.0) g/dL RDW (12.1-15.1) % Plt Count (130-400) 10^3/c mm MPV (7.4-10.4) fL Neut % (Auto) % Lymph % (Auto) % [place] % (Auto) % Eos % (Auto) % Baso % (Auto) % Neut # (Auto) (1.8-7.7) 10^3/u L Lymph # (Auto) (0.8-4.8) 10^3/u L [place] # (Auto) (0.2-0.9) 10^3/u L Eos # (Auto) (0.0-0.8) 10^3/u L Baso # (Auto) (0.0-0.1) 10^3/u L Nucleated RBC % (a uto) % Nucleated RBCs # /100WBC Specimen Type Arterial Sample Site Brachial, right ABG pH 7.40 (7.35-7.45) ABG pCO2 47.3 H (35-45) mmHg ABG pO2 129.0 H (80.0-100.0) mmH g ABG HCO3 29.0 H (22-26) mmol/L ABG O2 Saturation 99.5 ABG Base Excess 3.2 H (-2.0-2.0) mmol/ L Jin Test Pos Hematocrit 46.8 (42-52) % Hgb O2 Saturation 95.3 (95-100) % Carboxyhemoglobin 3.5 (0.4-20.1) %THgb Methemoglobin 0.7 (0.4-1.5) % Total Hemoglobin 15.3 (14-18) g/dL Ionized Calcium 1.2 (1.1-1.4) mmol/L O2 Delivery Device Nc O2 Liters/Min 3.0 % Operations Inspector ID Jlg Sodium 135.0 Potassium 4.5 Chloride Carbon Dioxide Anion Gap BUN Creatinine GFR Calculation Glucose 123.0 H Calculated Osmolal ity Lactic Acid 1.6 Calcium Total Bilirubin AST ALT Alkaline Phosphata se Troponin T Baselin e Troponin T [address] [place] 6.52 (0-15) ng/L Delta Troponin T -1.48 L (0-10) ABS# Troponin T Hi Sens 6Hr (0-15) ng/L Troponin T Hi Sens 6Hr Delta (0-12) ng/L Total Protein Albumin Globulin SARS-CoV-2 Ag (Rap id) (Negative) 03/13/20 03/14/20 Range/Units 23:10 00:25 WBC (4.0-10.0) 10^3/ uL RBC (4.1-5.3) 10^6/u L Hgb (11.7-16.6) g/dL Hct (42.0-52.0) % MCV (80-94) fL MCH (28.0-34.0) pg MCHC (30.0-36.0) g/dL RDW (12.1-15.1) % Plt Count (130-400) 10^3/c mm MPV (7.4-10.4) fL Neut % (Auto) % Lymph % (Auto) % [place] % (Auto) % Eos % (Auto) % Baso % (Auto) % Neut # (Auto) (1.8-7.7) 10^3/u L Lymph # (Auto) (0.8-4.8) 10^3/u L [place] # (Auto) (0.2-0.9) 10^3/u L Eos # (Auto) (0.0-0.8) 10^3/u L Baso # (Auto) (0.0-0.1) 10^3/u L Nucleated RBC % (a uto) % Nucleated RBCs # /100WBC Specimen Type Sample Site ABG pH (7.35-7.45) ABG pCO2 (35-45) mmHg ABG pO2 (80.0-100.0) mmH g ABG HCO3 (22-26) mmol/L ABG O2 Saturation ABG Base Excess (-2.0-2.0) mmol/ L Jin Test Hematocrit (42-52) % Hgb O2 Saturation (95-100) % Carboxyhemoglobin (0.4-20.1) %THgb Methemoglobin (0.4-1.5) % Total Hemoglobin (14-18) g/dL Ionized Calcium (1.1-1.4) mmol/L O2 Delivery Device O2 Liters/Min % Operations Inspector ID Sodium Potassium Chloride Carbon Dioxide Anion Gap BUN Creatinine GFR Calculation Glucose Calculated Osmolal ity Lactic Acid Calcium Total Bilirubin AST ALT Alkaline Phosphata se Troponin T Baselin e Troponin T [address] [place] (0-15) ng/L Delta Troponin T (0-10) ABS# Troponin T Hi Sens 6Hr 6.00 (0-15) ng/L Troponin T Hi Sens 6Hr Delta -2.00 L (0-12) ng/L Total Protein Albumin Globulin SARS-CoV-2 Ag (Rap id) Negative (Negative) Critical Care Time Critical Care Time: Critical Care Time: Yes Total Critical Care Time: 45 Attestation: This case had a high probability of a clinically significant, sudden, or life threatening deterioration of this patient's condition which required my full and direct attention, intervention and personal management. Discharge Plan Discharge Patient Disposition: Xfer Other Referrals: Ariel Miller MD [Primary Care Provider] - Discharge Date/Time: 03/14/20 09:32 Sign Out Sign Out Data: Patient Sign Out occurred on 03/14/20 at 00:16. Patient's care was discussed, and care was transferred from to Kelly Bradshaw. Patient Sign Out occurred on 03/14/20 at 06:42. Patient's care was discussed, and care was transferred from Kelly Bradshaw to Lee Mathew DO. Sign Out Comment: Case turned over to Dr. Mathew at change of shift. Last updated by Kelly Bradshaw at 03/14/20 05:46 Coding Level of Care Code ED Production Boring Machine Operator for Chg Fwd Exam Comprehensive
--- NOTE | 2020-03-13 20:46 | PC.NURSE ---
Being placed on mask 35% 10 L flow per RT
[2020-03-13 21:30] LABS: Troponin 5 2HR 6.52 ng/L (0-15)
[2020-03-13 21:46] LABS: Troponin 5 2HR Delta -1.48 ABS# (0-10)
--- NOTE | 2020-03-13 23:18 | PC.NURSE ---
Covid swab obtained sent to lab
[2020-03-13 23:53] LABS: SARS Covid-2 Antigen Negative (Negative)
--- NOTE | 2020-03-13 23:54 | PC.NURSE ---
Lights turned down -explanation of plan of care given to patient hob 45*-
[2020-03-14] VITALS (19 sets, daily range): BP systolic 97–160; BP diastolic 53–93; PULSE 74–105; RESP 16–28; TEMP 36.7; O2SAT 91–100
--- NOTE | 2020-03-14 00:34 | ECG_ITS ---
[facility] Test Date: 2020-03-14 Pat Name: Rocky Woodward Department: Room: Gender: Male [employer] Deck[employer]: : 1955 Requested By: Kaylie Lebron Order Number: [id number] Sammy MD: Renay Yee M.D. Measurements Intervals [place] Rate: 95 P: 73 [place]: 178 QRS: 77 QRSD: 164 T: -88 QT: 409 QTc: 515 Interpretive Statements ELECTRONIC VENTRICULAR PACEMAKER ABNORMAL RHYTHM ECG Compared to ECG 03/13/2020 20:14:04 Atrial-paced complex(es) or rhythm no longer present ST (T wave) deviation no longer present Myocardial infarct finding no longer present Electronically Signed On 03-14-2020 18:11:03 CDT by Renay Yee M.D. [email or web address] Display [id number]
--- NOTE | 2020-03-14 00:45 | PC.NURSE ---
Troponin drawn- 12 lead EKG completed
--- NOTE | 2020-03-14 01:58 | PC.NURSE ---
0150 Spo2 dropping to 90% patient sleeping soundly RT sked to check Patient
[2020-03-14] MEDS: nicotine 21 mg Patch 1 PATCH TRANSDERMA (02:12)
--- NOTE | 2020-03-14 06:52 | PC.NURSE ---
Received report assumed care. No changes noted from report. Rest with lights off. Oxygen in place. No acute distress. Denies any needs or wants. Continue to monitor. Waiting for Transfer
[2020-03-14] MEDS: LORazepam 2 mg/mL INJ 1 mL IVP (08:11)
--- NOTE | 2020-03-14 08:27 | PC.NURSE ---
pt belongings put in two belongings bags. belongings include a wallet, cell phone,eye glasses, a pair of shoes, a jacket, a pair of jeans with belt and a shirt.
[2020-03-14] MEDS: succinylcholine 20 mg/mL SDV 10mL 60 MG IVP (08:43)
[2020-03-14] MEDS: propofol 1,000 MG/100 ML INJ 3.4 MG IV (08:45)
--- NOTE | 2020-03-14 08:51 | PC.NURSE ---
nurse bolused 50mg of propofol from IV pump per verbal order of dr. reed
--- NOTE | 2020-03-14 08:57 | XRR_ITS ---
PROCEDURE INFORMATION: Exam: XR Chest, 1 View Exam date and time: 03/14/2020 8:57 AM Age: 65 years old Clinical indication: Device placement; Ett placement (vent status); Additional info: Post intubation TECHNIQUE: Imaging protocol: XR of the chest Views: 1 view. COMPARISON: CR XR chest 1V portable [id number] 03/13/2020 6:36 PM FINDINGS: Tubes, catheters and devices: An endotracheal tube is present with the tip at the T2-3 level. A permanent pacemaker appears intact. Lungs: Unremarkable. No consolidation. Pleural space: Unremarkable. No pleural effusion. No pneumothorax. Heart/Mediastinum: Unremarkable. No cardiomegaly. Bones/joints: Unremarkable. XR/XR chest 1V portable [id number] IMPRESSION: 1. The tip of the endotracheal tube projects at the T 2-3 level. 2. No significant cardiopulmonary abnormality.
[2020-03-14] MEDS: LORazepam 2 mg/mL INJ 1 mL ×2 (08:58→09:02)
[2020-03-14] MEDS: vecuronium 10 mg SDV IVP (09:05)
--- NOTE | 2020-03-14 09:09 | PC.NURSE ---
pt caballero had 550ml of urine out after initial caballero insertion
== END 2020-03-14 09:32 | disposition other institution (70) ==
PROVIDERS: Emergency Medicine; Emergency Provider Family Medicine; PCP Family Medicine
DX: R06.02 Shortness of breath (principal); I11.0 Hypertensive heart disease with heart failure; I50.9 Heart failure, unspecified; Z95.0 Presence of cardiac pacemaker
CPT/HCPCS: 12345; 31500; 36600; 71045; 80051; 80053; 82810; 83605; 83986; 84484; 85025; 87426; 93005; 94002; 94799; 96365; 96367; 96375; 99284; 99291; J0330; J1953; J2060; J2704; J2930; J3490

== ENCOUNTER 2020-04-10 05:32 | Outpatient (RCR) | payer MEDICARE, SELFPAY ==
--- NOTE | 2020-04-06 | CT_ITS ---
Radiation Therapy Planning CT images; total exam DLP: 1271.50 mGy-cm MTDD
[2020-04-06 10:30] LABS: Basophils # 0.1 10^3/uL (0.0-0.1); Basophils % 0.6 %; Eosinophils # 0.2 10^3/uL (0.0-0.8); Eosinophils % 1.6 %; Hematocrit 42.5 % (42.0-52.0); Hemoglobin 13.5 g/dL (11.7-16.6); Lymphocytes # 4.2 10^3/uL (0.8-4.8); Lymphocytes % 33.9 %; Mean Corpuscular HGB Conc 31.8 g/dL (30.0-36.0); Mean Corpuscular Hemoglobin 27.9 pg (28.0-34.0); Mean Corpuscular Volume 87.8 fL (80-94); Mean Platelet Volume 9.2 fL (7.4-10.4); Monocytes # 2.6 10^3/uL (0.2-0.9); Monocytes % 20.8 %; Neutrophils # 5.35 10^3/uL (1.8-7.7); Neutrophils % 42.9 %; Nucleated Red Blood Cells % 0 %; Platelet Count 305 10^3/cmm (130-400); Red Blood Count 4.84 10^6/uL (4.1-5.3); Red Cell Distribution Width 13.6 % (12.1-15.1); White Blood Count 12.5 10^3/uL (4.0-10.0)
[2020-04-06 10:48] LABS: Alanine Aminotransferase 13 U/L (0-41); Albumin Level 4.2 g/dL (3.5-5.2); Alkaline Phosphatase 95 IU/L (40-130); Anion Gap 11.4 (5-19); Aspartate Amino Transferase 18 U/L (0-40); Blood Urea Nitrogen 8 mg/dL (8-23); Calcium 9.2 mg/dL (8.5-10.5); Carbon Dioxide 33 mmol/L (22-29); Chloride 90 mmol/L (98-107); Globulin 3.3 g/dL (1.3-4.6); Glomerular Filtration Rate 113.5 mL/min (90-130); Glucose 76 mg/dL (65-115); Osmolality Calculated 267 mOsm/kg (285-295); Potassium 4.4 mmol/L (3.5-5.1); Sodium 130 mmol/L (136-145); Total Bilirubin 0.4 mg/dL (0.15-1.2); Total Protein 7.5 g/dL (6.6-8.7)
--- NOTE | 2020-04-06 17:41 | ONC CON_ITS ---
Dr. Patterson New Patient Note Patient: Rocky Woodward Unit #: [id number]: 1955 Dicatated By: Ravindra Patterson M.D.Date of Visit: Apr 06, 2020 Onc MED New Patient/Consult Referring Physician: Janice Guevara Chief Complaint: Tracheal malignancy. 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 As yet there is no confirmed primary malignancy. He has rheumatoid arthritis for which he has been on chronic methotrexate therapy. Approximately a month ago he had presented with hoarseness, difficulty swallowing, and shortness of breath. He has been seen by Dr. Schmid, and evaluation with neck CT on 03/06/2020 reported a soft tissue mass in the posterior mediastinum measuring 3.68 x 4.31 x 5.73 centimeters. The mass was located anterior to the T1-T3 level. There was associated deviation and compression of the trachea and compression of the esophagus. It appeared to either be arising from or invading the left lobe of the thyroid. There was asymmetry of the vocal cords. Chest CT at that time showed no evidence for associated pulmonary mass lesions and there was no axillary or significant mediastinal adenopathy noted. The visualized portions of liver, adrenal glands, and pancreas appeared unremarkable. On 03/13/2020 he had presented to the emergency room with worsening shortness of breath. He was felt to have impending respiratory failure. He was transferred to [facility] in [facility] for further management, and he was intubated for the transfer. During the transfer he had experienced some seizure-like activity, but on subsequent evaluation by a neurologist, it was felt that this was not true seizures. His further evaluation there included bronchoscopy and esophagoscopy on 03/15/2020, with the bronchoscopy reportedly showing tumor invading or originating from the membranous portion of the trachea and extending from 10 to 15 cm. The upper esophagus appeared normal, the scope was not able to be advanced beyond 20 cm due to extrinsic compression. Biopsies from the trachea showed invasive poorly differentiated carcinoma with strong expression of p63, suggestive of poorly differentiated squamous cell carcinoma. There was also strong cytokeratin 7 expression. The TTF-1 was negative. On 03/16/2020 underwent placement of tracheal stent. He was then discharged home to continue his further treatment locally. He says his energy has not been very good, and he has very limited activity. He is able to do just a little bit of light work. His ECOG score is 2. He has no appetite. His weight is down more than 20 pounds. He was having low-grade fever when he initially got home from the hospital, that has now resolved. He has no night sweating. He is getting more short of breath again and he also has more hoarseness. He has been coughing up a lot of mucus, frequently with blood in it. He has not been having chest pain. He does have difficulty swallowing. He has no other GI or complaints. He has joint pain with the rheumatoid arthritis, mainly in his hands. He says it just comes and goes. He was having headache, that seems to have resolved. He has no focal neurologic symptoms. 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 Past Surgical History: He underwent bronchoscopy and esophagoscopy on 03/15/2020, and he underwent placement of tracheal stent on 03/16/2020. He underwent placement of permanent pacemaker in 2008 and in 2017. Medications: Atorvastatin Calcium 1 (20 mg) Tablet Oral daily, Fiber Tablet Oral daily, Folic Acid 1 (1 mg) Tablet Oral daily, Lisinopril 1 (5 mg) Tablet Oral daily, Methotrexate (2.5 mg) Tablet Oral Take as Directed, Metoprolol Tartrate 1 (25 mg) Tablet Oral b.i.d. Allergies: No Known Allergies. Social History: Mr. Woodward is single. 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 He has a history of smoking 1 pack of cigarettes daily for 40 years, though he had quit for a while during that time. He quit again in March 2020. He had a long history of heavy alcohol use, but he quit drinking 6 years ago. He also has a prior history of methamphetamine abuse. Family History: Father at age 65 with of some type of hematologic disorder. Mother with a neurological condition at age 90. He had 3 brothers. One of heart attack, another of alcoholism, and another of laryngeal cancer. He has 1 sister who is living, but her health status is unknown to the patient. Review Of Symptoms: Constitutional - He generally feels lousy. His energy is very low. He is able to do a few light things around the house. His appetite is very. His normal weight is 145. He has lost more than 20 lbs over a month. He ran a low grade fever after hospital discharge 3 weeks ago, but he has had no fever recently. No night sweats. ECOG score is 2, Eyes - No change in vision, ENMT - No hearing loss or tinnitus. No sinus congestion/drainage. No mouth sores. His throat is very sore. He reports difficulty swallowing, and he is starting to get more hoarse again. He has a tracheal stent, Hematologic/Lymphatic - No abnormal bruising or bleeding, Respiratory - He has shortness of breath. He has been coughing up mucus, frequently with blood in it. No pleuritic pain, Cardiovascular - No angina pain. No palpitations, Gastrointestinal - No nausea or vomiting. No heartburn or acid reflux. No diarrhea or constipation. No blood in the stool or black stools, Genitourinary (M) - No dysuria or hematuria. No urinary frequency. No urgency or incontinence, Musculoskeletal - He has joint pain in his hands from rheumatoid arthritis, Integumentary - No skin complications, Neurologic - He was having headaches, but those have resolved. No dizziness. No numbness or tingling. No other focal neurologic symptoms, Psychiatric - He is having some depression. He has difficulty sleeping. Vital Signs: Performed on Apr 06, 2020 12:00: 68.00 in, 121.4 lbs, 98.9 F, 88, 17, 151/69 mm(hg) (HIGH), 96 %, 3, Performed on Apr 06, 2020 12:00: 18.459 kg/m2 (LOW), and Performed on Apr 06, 2020 11:11: 1.65 sq.m. Physical Examination: Constitutional - He appears somewhat weak generally, Eyes - Sclerae nonicteric. Conjunctivae clear, ENMT - No lesions noted in the oral cavity, Neck - No mass or thyromegaly, Hematologic/Lymphatic - No cervical, clavicular, or axillary adenopathy, Respiratory - Lungs are clear with slightly diminished air movement bilaterally, Cardiovascular - Heart rhythm is regular. There is no murmur, gallop, or rub noted, Abdomen - Soft and non-tender. Liver and spleen are not enlarged. There is no abdominal mass or ascites noted and there is no inguinal adenopathy, Back/Spine - No spine or CVA tenderness noted, Extremities - No edema. There are some chronic RA changes in both hands. Pedal pulses are palpable bilaterally, Integumentary - No rashes. No suspicious skin lesions noted, Neurologic - No focal neurologic deficits noted. Impression: 1. 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 A primary source has not been documented, but cervical esophagus would be most likely. 2. He underwent bronchoscopy and esophagoscopy on 03/15/2020 followed by placement of tracheal stent on 03/16/2020. His other medical illnesses include: 3. Hypertension. 4. Dyslipidemia. 5. Rheumatoid arthritis on chronic methotrexate therapy. 6. He has a history of cardiomyopathy, presumed alcohol-related, and he had associated systolic congestive heart failure. 7. He has undergone placement of permanent pacemaker for sick sinus syndrome. Plan: The findings on the imaging studies were reviewed with the patient, and we also reviewed the CT images. Pathology results also were reviewed, and we discussed the clinical implications. He has poorly differentiated invasive carcinoma involving the trachea. Clinically this would appear to be most likely a secondary neoplasm. Other primary malignancy has not yet been confirmed. As such, TNM staging cannot be assigned. 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 As his tumor is locally advanced and symptomatic, the plan will be to proceed with radiation concurrently with weekly carboplatin/paclitaxel chemotherapy. We will want to start treatment as soon as possible. However, he will still need a staging PET/CT and I also will request a next generation sequencing study on the biopsy. Signed By: Ravindra Patterson M.D. <<Signature on File>>
--- NOTE | 2020-04-08 18:37 | N.ONRAD NP_ITS ---
Radiation Oncology New Patient Visit Patient: Rocky Woodward MR#: [id number] : 1955> Age: 65> Sex: Male> Dictated by: Dr. 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 Although a tracheal primary is possible, this is clinically most consistent with a T4 NX MX cervical esophagus primary that has radiographically eroded into trachea and thyroid and clinically involves or compresses the recurrent laryngeal nerve contributing to left vocal cord paralysis. The patient is severely symptomatic with respect to shortness of breath and unintended weight loss. Purpose of Visit: Discuss the role of radiotherapy with curative intent. History of Present Illness: The patient is a 65-year-old male who was seen in January by an ENT specialist secondary to new onset hoarseness and associated dysphagia. According to medical records, the ENT specialist reported that he had a paralyzed left vocal cord. A subsequent CT of the neck and chest (03/06/2020) revealed: -) A 5.7 cm heterogeneous soft tissue mass anterior to the T1-T3 vertebral bodies with possible invasion of the left lobe of the thyroid. Per the radiologist's read, this upper posterior mediastinal mass caused deviation and compression of the trachea as well as compression of the esophagus. Asymmetry of the vocal cords was appreciated. -) No evidence of a lung primary or thymic masses. According to medical records, the patient was scheduled to see a thoracic surgeon, but on 03/13/2020, the patient presented to the emergency room with acute respiratory distress due to mass-effect on the trachea from the known mediastinal mass and over a 1 month history of progressive shortness of breath. The patient was intubated, and subsequently experienced 3 episodes of post intubation seizure-like activity. After a CT of the head (03/13/2020) revealed no intracranial abnormality, this seizure-like activity was later deemed by Dr Polanco, a neurologist, to be due to a propofol reaction. On 03/15/2020 an esophagoscopy, and bronchoscopy with biopsies were completed by Dr Guevara, a thoracic surgeon. Per the procedure note, the adult gastroscope was introduced into the upper esophagus without difficulty. There was extrinsic compression of the esophagus without mucosal abnormality at 20 cm. The adult gastroscope could not be passed distal to the extrinsic compression and was withdrawn. Through the lumen of the endotracheal tube, the flexible bronchoscopy was passed. The distal trachea was normal. The anuel was sharp and non deviated. The upper trachea was normal down to 10 cm. At 10 cm, there was tumor present within the membranous trachea extending 5 cm. Multiple biopsies were taken for flow cytometry, frozen, and permanent section.??? Pathology from this revealed invasive poorly differentiated carcinoma with strong expression of p63 which suggests a poorly differentiated squamous cell carcinoma. Furthermore, there was strong cytokeratin 7 expression, but TTF-1 was negative (thus a thyroid primary is unlikely). On 03/16/2020, Dr Guevara placed two bronchoscopic stents, measuring an aggregate of ~10 cm in length, into the trachea. Per the procedure note, the entire tumor was covered without extrinsic deformation of the stents. On consultation today, the patient reports that he is having repeat breathing difficulties coupled with episodic blood flecked sputum, and he requests urgent treatment. Per review of the medical records, surgery is not planned by Dr Guevara. Current Medications: Atorvastatin Calcium, fiber, flucelvax, folic Acid, lisinopril, methotrexate, metoprolol Tartrate. Allergies: No Known Allergies Medical History: - Dyslipidemia, - history of alcohol abuse, - hypertension, - paralysis of left vocal cord, - sick sinus syndrome, - siezure. No history of collagen vascular disease. No previous radiation therapy. Surgical History: Bronchoscopy on 03/16/2020, pacemaker placement and tracheal Stent on 03/16/2020. Family History: Father is having experienced Blood Disorder at age 65. Mother is having experienced Neurolgical at age 90. Brother is having experienced alcohol. Brother is having experienced Larynx. Brother is having experienced myocardial. Sister is alive. Social History: Last screened on 04/06/2020 - Yes - but has quit for less than one year. Smoked 1.0 pack/day for 45 years (45 pack years). Last screened on 03/23/2020 - Past drinker. Patient indicated use of the following products: cigarettes. Current Complaints / Review of Systems: ROS Constitutional - He generally feels lousy. His energy is very low. He is able to do a few light things around the house. His appetite is very. His normal weight is 145. He has lost more than 20 lbs over a month. He ran a low grade fever after hospital discharge 3 weeks ago, but he has had no fever recently. No night sweats. ECOG score is 2. ROS Eyes - No change in vision. ROS ENMT - No hearing loss or tinnitus. No sinus congestion/drainage. No mouth sores. His throat is very sore. He reports difficulty swallowing, and he is starting to get more hoarse again. He has a tracheal stent. ROS Hematologic/Lymphatic - No abnormal bruising or bleeding. ROS Respiratory - He has shortness of breath. He has been coughing up mucus, frequently with blood in it. No pleuritic pain. ROS Cardiovascular - No angina pain. No palpitations. ROS Gastrointestinal - No nausea or vomiting. No heartburn or acid reflux. No diarrhea or constipation. No blood in the stool or black stools. ROS Genitourinary (M) - No dysuria or hematuria. No urinary frequency. No urgency or incontinence. ROS Musculoskeletal - He has joint pain in his hands from rheumatoid arthritis. ROS Integumentary - No skin complications. ROS Neurologic - He was having headaches, but those have resolved. No dizziness. No numbness or tingling. No other focal neurologic symptoms. ROS Psychiatric - He is having some depression. He has difficulty sleeping.. Vital Signs: Performed on 04/06/2020 11:11 AM Height - 68 in, Weight - 121.4 lbs (high), BSA - 1.65 sq.m, BMI - 18.46, Temperature - 98.9 f (high), Pulse - 88 /min, Respiration - 17 /min, O2 Sat - 96 %, Pain - 3 and BP - 151/ 69 mm(hg)(high/). Physical Exam: GENERAL:??? The patient is alert, and in no acute distress. HEENT:??? Head is normocephalic. Face is symmetric. External ocular movements are intact. Sclera and conjunctivae are non erythematous. NECK:??? Trachea is displaced to the right. LYMPH NODES:???Fullness in cervical level 6 is appreciated. LUNGS:??? Clear to auscultation bilaterally. Respiratory movement is unlabored. HEART:??? Regular rate and rhythm. EXTREMITIES:??? No deformities. NEUROLOGIC:??? Gait and station are normal.??? The patient is well coordinated and strength is equal bilaterally. TAB CUTTER:??? Cranial nerves II-XII are intact and without focal deficits.??? Psych: Affect is normal. Skin: Cursory review of the skin reveals no obvious lesions concerning for malignancy. Performance Status: 2 - Ambulatory/capable of all self-care, unable to perform any work activities. Up and about more than 50% of waking hours. (ECOG) Imaging Review: I reviewed the radiographic images discussed above. Impression: The patient is a 65-year-old male with a pacemaker and a newly diagnosed poorly differentiated squamous cell carcinoma of unknown primary from a tracheal biopsy. Although a tracheal primary is possible, its incidence is exceedingly rare and it represents less than 0.5% of malignant tumors. In my opinion, this is clinically most consistent with a T4 NX MX cervical esophagus primary that has radiographically eroded into trachea and thyroid and clinically involves or compresses the recurrent laryngeal nerve contributing to left vocal cord paralysis. The patient is severely symptomatic with respect to shortness of breath and unintended weight loss. He requests that treatment be started urgently. I discussed this case with Dr Patterson, and the consensus plan is to treat this as a cervical esophagus primary. Therefore the patient will be treated to an aggregate dose of 60 Gy in 30 fractions concurrent with weekly carbotaxol. Since the patient has an indwelling pacemaker, the radiation therapy plan will be adjusted such that the dose rate will not exceed 1 cGy/min with respect to the pacemaker, and the aggregate scatter dose that the pacemaker receives will be less than 5 Gy. There may be merit to considering Cancer Type ID, MSI/MMR testing, and PD-L1 analysis. I defer to Dr. Patterson's opinions regarding these. Plan: We will begin treatment planning today. Signed by Donte Allen MD: 04/08/2020 9:06:40 PM <<Signature on File>> CPT Code: CPT Code:
[2020-04-09 09:19] LABS: Glomerular Filtration Rate 135.6 mL/min (90-130)
[2020-04-09] MEDS: sodium chloride 0.9% 250 ML 75 ML IV (10:01)
== END 2020-04-13 06:00 | disposition home or self-care (01) ==
LOC: ONCMED 05:32
PROVIDERS: Internal Medicine Medical Oncology; PCP Family Medicine; Visit Provider Radiology Radiation Oncology
DX: Z51.0 Encounter for antineoplastic radiation therapy (principal); Z51.11 Encounter for antineoplastic chemotherapy; Z23 Encounter for immunization; C15.3 Malignant neoplasm of upper third of esophagus; C78.39 Secondary malignant neoplasm of other respiratory organs; C78.1 Secondary malignant neoplasm of mediastinum; E78.5 Hyperlipidemia, unspecified; I10 Essential (primary) hypertension; J38.01 Paralysis of vocal cords and larynx, unilateral; Z95.0 Presence of cardiac pacemaker; Z87.891 Personal history of nicotine dependence; G47.00 Insomnia, unspecified; C80.1 Malignant (primary) neoplasm, unspecified; M06.9 Rheumatoid arthritis, unspecified; Z79.899 Other long term (current) drug therapy; I11.0 Hypertensive heart disease with heart failure; I50.20 Unspecified systolic (congestive) heart failure; I42.9 Cardiomyopathy, unspecified
CPT/HCPCS: 36415; 77300; 77301; 77338; 77386; 80053; 82565; 85025; 87635; 90471; 96367; 96413; 96417; 99205; 99215; J1100; J1200; J2469; J3490; J7030; J7050; J9045; J9267

== ENCOUNTER 2020-04-13 08:50 | Day surgery (SDC) | payer MEDICARE, SELFPAY ==
[2020-04-10 12:16] VITALS: BMI 18.9
--- NOTE | 2020-04-13 | SCC_ITS ---
Procedure Done: Placement of PowerPort in the left subclavian vein 22.8 seconds of fluoroscopic guidance, for a cumulative dose of 2.54 mGy, was provided to Dr. Freire by the radiology department. C-arm images of the chest were saved for the patient's permanent record. [facility]
[2020-04-13 09:13] VITALS: BP 119/62; PULSE 80; RESP 18; TEMP 36.8; O2SAT 96
[2020-04-13] MEDS: sodium chloride 0.9% 1,000 ML 30 ML IV (09:31)
[2020-04-13 10:03] VITALS: PULSE 68; RESP 18; O2SAT 98
[2020-04-13] MEDS: ipratropium 0.5 mg/2.5 mL Neb INHALATION (10:03)
--- NOTE | 2020-04-13 10:04 | ANES.PREANE2 ---
Pre-Anesthetic Assessment Pre-Anesthetic Assessment: Height/Weight: Height 1.7 m Weight 54.885 kg Temp Pulse Resp BP Pulse Ox 98.2 F 80 18 119/62 96 04/13/20 09:13 04/13/20 09:13 04/13/20 09:13 04/13/20 09:13 04/13/20 09:13 Preop Diagnosis: unknown primary cancer Proposed Procedure: Operation Date: 04/13/20 10:20 Proposed Procedures p Portacath Placement 44376 C44.92(Not Applicable) - Vinh Freire MD Was Beta Ysabel taken within 24 hours: Yes Last intake: Intake Last Liquid Date 04/12/20 Last Liquid Time 19:00 Last Solid Date 04/12/20 Last Solid Time 18:00 Social: Social History: No alcohol and No tobacco Exam: Pre-Anes Outpt Exam: alert, oriented x 3, clear to auscultation bilaterally and regular rate & rhythm Airway: Submandibular: WNL MP: 1 History/ROS: No significant history except as noted Pulmonary: Pulmonary: None reported CV/HEM: CV/HEM: Arrythmia, CHF and HTN Comments: Pacemaker placed for bradycardia : : None reported Hepatic: Hepatic: None reported GI: GI: None reported Metabolic: Metabolic: Hyperlipidemia Musc/skel: Musc/skel: None reported Neuropsych: Neuropsych: None reported Anesthetic Plan: ASA status: 3 Meds/Allergies Current Medications: Current Medications Generic Name Dose Route Start Last Admin Trade Name Freq PRN Reason Stop Dose Admin Sodium Chloride 1,000 mls @ 30 ml s/hr 04/13/20 09:15 04/13/20 09:31 Sodium Chloride 0.9% IV 04/14/20 09:14 30 mls/hr .Q24H AVEL Administration PFSH Anesthesia PFSH: Medical History (Updated 04/09/20 @ 17:46 by Vinh Freire MD) Congestive heart failure Hx of rheumatoid arthritis Hypertension SCC (squamous cell carcinoma) Unknown primary involving the trachea Surgical History (Updated 04/09/20 @ 17:46 by Vinh Freire MD) H/O esophagogastroduodenoscopy History of bronchoscopy History of permanent cardiac pacemaker placement Family History Brother CAD (coronary artery disease) Cancer larynx Mother Cancer breast Other Diabetes Denies family history of Anesthesia complication Bleeding disorder Social History Smoking and tobacco status: former smoker Alcohol intake: never Lives independently: Yes Marital status: / Current occupational status: disabled History of recent travel: No Data Anesthesia Cardiac Studies: No Data to Display
--- NOTE | 2020-04-13 10:05 | W.PM.OPSUD ---
Surgery/Procedure H&P Update DATE OF PROCEDURE: April 13, 2020 DATE H&P PERFORMED: 04/09/20 H&P UPDATE INFORMATION: I have reviewed H&P completed within last 30 days, I have examined patient prior to procedure and No changes to prior documentation PREOP DIAGNOSIS: unknown primary cancer PLANNED PROCEDURE: Operation Date: 04/13/20 10:20 Proposed Procedures p Portacath Placement 52388 C44.92(Not Applicable) - Vinh Freire MD
--- NOTE | 2020-04-13 10:27 | SC_ITS ---
WS: [id number] INTRAOPERATIVE TECHNIQUE: 2 Spot fluoroscopic images for intraoperative purposes. FLUOROSCOPY TIME: 22.8 seconds CLINICAL INFORMATION: surgical COMPARISON: None. FINDINGS: Left central venous catheter with tip in the mid to distal SVC in good position. Partially visualized right cardiac pacer. Endotracheal stent projected over the mediastinum. No visualized pneumothorax. SC/C-arm FL for CVA 38330 IMPRESSION: Images obtained for intraoperative purposes.
[2020-04-13] MEDS: lidocaine 1% INJ 20 mL INTRAVESIC (11:10)
[2020-04-13] MEDS: heparin, porcine 1,000 unit/mL INJ 10 mL 10000 UNIT INJECTION (11:19)
[2020-04-13 11:33] VITALS: BP 115/78; PULSE 86; RESP 18; TEMP 36.7; O2SAT 95
--- NOTE | 2020-04-13 11:35 | PM.OP ---
Operative Report Date of procedure: April 13, 2020 Pre-op Diagnosis: unknown primary cancer involving the trachea Post-op diagnosis: same Procedure Done: Placement of PowerPort in the left subclavian vein Fluoroscopic guidance and interpretation for placement of catheter Pathology: none sent Surgeon: Vinh Freire Anesthesia: MAC Condition: stable Disposition: same day Procedure: The patient was taken to the Operating Room and the chest and neck bilaterally were prepped and draped in a sterile manner after the antibiotic had been administered and shoulder rolls had been placed. A total of 10 mL of 1% lidocaine with 0.5% Marcaine was infiltrated under the clavicle on the left side at the site of the planned entry into the subclavian vein. An introducer needle was then used to access the subclavian vein under the clavicle and after withdrawing blood syringe was removed and a guidewire passed under fluoroscopy into the superior vena cava. The site of the planned port was then marked on the chest and a 15 blade was used to make a 3 cm skin incision this was extended into the subcutaneous tissue using electrocautery and a subcutaneous pocket over the pectoralis fascia was created 2-0 Vicryl suture was used to suture the port to the pectoral fascia in the pocket on 3 sides. The catheter, after having been flushed with hep saline, was attached to the tunneler and a tunnel created between the port site and the subclavian vein entry site. Under fluoroscopy the dilator sheath was passed over the guidewire into the proximal superior vena cava. The inner dilator was removed and the sheath left behind and~ the catheter was introduced through the peel-away sheath with the tip in the superior vena cava. The peel-away sheath was removed. The proximal end of the catheter was cut to the right size and was attached to the port. Using a Gallardo needle the port was accessed, it withdrew blood easily and flushed easily. A final 5cc of heparin was used to flush the PowerPort. The subcutaneous tissue was approximated using interrupted 3-0 Vicryl sutures and the skin at the introducer site and the port site was closed using subcuticular running 4-0 Monocryl sutures. Surgical glue was applied and the patient was stable throughout the procedure. Fluoroscopic guidance and interpretation was performed for introduction of the guidewire in the left subclavian vein, passage of dilator and placement of catheter tip in the distal superior vena cava.
[2020-04-13 11:43] VITALS: BP 110/66; PULSE 81; RESP 18; O2SAT 98
--- NOTE | 2020-04-13 15:08 | ANE.PACU2 ---
Inpatient post-anesthesia follow up: Airway intact: Yes Vital signs: Temperature 98.1 F Pulse Rate 81 Respiratory Rate 18 Blood Pressure 110/66 Pulse Oximetry 98 Oxygen Delivery Me thod Room Air Oxygen Flow Rate Fraction of Inspir ed Oxygen Hydration adequate: Yes Nausea and vomiting: No Pain level: 2 Mental status: Baseline
== END 2020-04-13 11:53 | disposition home or self-care (01) ==
PROVIDERS: PCP Family Medicine; Visit Provider Surgery
PROC: (CPT 36561; principal; 2020-04-13 10:20)
DX: C44.92 Squamous cell carcinoma of skin, unspecified (principal); I11.0 Hypertensive heart disease with heart failure; I50.9 Heart failure, unspecified; E78.5 Hyperlipidemia, unspecified; Z87.891 Personal history of nicotine dependence
CPT/HCPCS: 36561; 12345; 76000; 77001; 94640; C1788; J0690; J1644; J2704; J3010; J3490; J7030; J7611; J7644

== ENCOUNTER 2020-04-14 05:26 | Outpatient (RCR) | payer MEDICARE, SELFPAY ==
[2020-04-14 14:28] LABS: Basophils % 0.8 %; Eosinophils # 0.2 10^3/uL (0.0-0.8); Eosinophils % 3.2 %; Hematocrit 36.8 % (42.0-52.0); Hemoglobin 11.7 g/dL (11.7-16.6); Lymphocytes # 1.5 10^3/uL (0.8-4.8); Lymphocytes % 29.4 %; Mean Corpuscular HGB Conc 31.8 g/dL (30.0-36.0); Mean Corpuscular Hemoglobin 27.8 pg (28.0-34.0); Mean Corpuscular Volume 87.4 fL (80-94); Mean Platelet Volume 9.3 fL (7.4-10.4); Monocytes % 20.2 %; Neutrophils # 2.29 10^3/uL (1.8-7.7); Neutrophils % 45.2 %; Nucleated Red Blood Cells % 0 %; Platelet Count 232 10^3/cmm (130-400); Red Blood Count 4.21 10^6/uL (4.1-5.3); Red Cell Distribution Width 13.5 % (12.1-15.1); White Blood Count 5.1 10^3/uL (4.0-10.0)
[2020-04-14 14:49] LABS: Alanine Aminotransferase 14 U/L (0-41); Albumin Level 3.7 g/dL (3.5-5.2); Alkaline Phosphatase 68 IU/L (40-130); Anion Gap 13.5 (5-19); Aspartate Amino Transferase 17 U/L (0-40); Blood Urea Nitrogen 11 mg/dL (8-23); Calcium 8.6 mg/dL (8.5-10.5); Carbon Dioxide 31 mmol/L (22-29); Chloride 91 mmol/L (98-107); Globulin 3.1 g/dL (1.3-4.6); Glomerular Filtration Rate 135.6 mL/min (90-130); Glucose 100 mg/dL (65-115); Osmolality Calculated 271 mOsm/kg (285-295); Potassium 4.5 mmol/L (3.5-5.1); Sodium 131 mmol/L (136-145); Total Bilirubin 0.4 mg/dL (0.15-1.2); Total Protein 6.8 g/dL (6.6-8.7)
== END 2020-04-14 23:59 | disposition home or self-care (01) ==
LOC: ONCMED 05:26
PROVIDERS: Absent Provider Radiology Radiation Oncology; PCP Family Medicine; Visit Provider Internal Medicine Medical Oncology
DX: C78.39 Secondary malignant neoplasm of other respiratory organs (principal); Z51.0 Encounter for antineoplastic radiation therapy; Z51.11 Encounter for antineoplastic chemotherapy; C80.1 Malignant (primary) neoplasm, unspecified; Z20.828 Contact with and (suspected) exposure to other viral communicable diseases; R50.9 Fever, unspecified; R05 Cough; R13.10 Dysphagia, unspecified; D70.1 Agranulocytosis secondary to cancer chemotherapy; T45.1X5A Adverse effect of antineoplastic and immunosuppressive drugs, initial encounter; F10.11 Alcohol abuse, in remission; F19.11 Other psychoactive substance abuse, in remission; I10 Essential (primary) hypertension; E78.5 Hyperlipidemia, unspecified; M06.9 Rheumatoid arthritis, unspecified; Z79.899 Other long term (current) drug therapy; Z79.2 Long term (current) use of antibiotics; Z87.891 Personal history of nicotine dependence; Z95.0 Presence of cardiac pacemaker
CPT/HCPCS: 36415; 77014; 77336; 77386; 80053; 85025; 87635; 96365; 96367; 96372; 96413; 96417; 99214; J1100; J1200; J1442; J1956; J2469; J3490; J7030; J7050; J9045; J9267

== ENCOUNTER 2020-04-24 05:46 | Outpatient (RCR) | payer MEDICARE, SELFPAY ==
[2020-04-15] MEDS: sodium chloride 0.9% 250 ML 75 ML IV (10:31)
--- NOTE | 2020-04-15 12:11 | ONC FU_ITS ---
Dr. Patterson Patient Follow-Up Note Patient: Rocky Woodward Unit #: [id number]: 1955 Dicatated By: Ravindra Patterson M.D.Date of Visit:Apr 15, 2020 Onc Med Follow-up/Prog Note Chief Complaint: Tracheal malignancy. 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 As yet there is no confirmed primary malignancy. He has rheumatoid arthritis for which he has been on chronic methotrexate therapy. Approximately a month ago he had presented with hoarseness, difficulty swallowing, and shortness of breath. He has been seen by Dr. Schmid, and evaluation with neck CT on 03/06/2020 reported a soft tissue mass in the posterior mediastinum measuring 3.68 x 4.31 x 5.73 centimeters. The mass was located anterior to the T1-T3 level. There was associated deviation and compression of the trachea and compression of the esophagus. It appeared to either be arising from or invading the left lobe of the thyroid. There was asymmetry of the vocal cords. Chest CT at that time showed no evidence for associated pulmonary mass lesions and there was no axillary or significant mediastinal adenopathy noted. The visualized portions of liver, adrenal glands, and pancreas appeared unremarkable. On 03/13/2020 he had presented to the emergency room with worsening shortness of breath. He was felt to have impending respiratory failure. He was transferred to [facility] in [facility] for further management, and he was intubated for the transfer. During the transfer he had experienced some seizure-like activity, but on subsequent evaluation by a neurologist, it was felt that this was not true seizures. His further evaluation there included bronchoscopy and esophagoscopy on 03/15/2020, with the bronchoscopy reportedly showing tumor invading or originating from the membranous portion of the trachea and extending from 10 to 15 cm. The upper esophagus appeared normal, the scope was not able to be advanced beyond 20 cm due to extrinsic compression. Biopsies from the trachea showed invasive poorly differentiated carcinoma with strong expression of p63, suggestive of poorly differentiated squamous cell carcinoma. There was also strong cytokeratin 7 expression. The TTF-1 was negative. On 03/16/2020 underwent placement of tracheal stent. He was then discharged home to continue his further treatment locally. He has some fatigue, his energy is not too bad now. He is able to do light work. Appetite is not very good and he has noticed a loss of taste sensation, but he is eating some and he is getting 2 ensures daily. He has not had fever or night sweats, but did have a little sweating after taking his steroid this morning. He still has sore throat, but he is able to swallow. He has some cough and he continues to bring up mucus, but no blood. His breathing is getting better. He does not complain of chest pain. He has no GI or complaints. He has rheumatoid arthritis, but his joint pain is not bad. He does not complain of headache or dizziness. He has no numbness/paresthesia or other neuropathy symptoms. Medications: Atorvastatin Calcium 1 (20 mg) Tablet Oral daily, Fiber Tablet Oral daily, Folic Acid 1 (1 mg) Tablet Oral daily, Lisinopril 1 (2.5 mg) Tablet Oral daily, Methotrexate (2.5 mg) Tablet Oral Take as Directed, Metoprolol Tartrate 1 (25 mg) Tablet Oral b.i.d., Multivitamin 1 Tablet Oral daily Allergies: No Known Allergies. Review of Systems: Constitutional - His energy is not too bad. He is doing light work at home. Appetite is not good. He has lost taste sensation. No fever or night sweats. He has had some sweating this morning after taking steroid. ECOG score is 1, ENMT - No sinus congestion/drainage. No mouth sores. He has sore throat, but he is able to swallow, Hematologic/Lymphatic - No abnormal bruising or bleeding, Respiratory - His breathing is better. He has productive cough, but he currently is not having hemoptysis, Cardiovascular - No angina pain. No palpitations, Gastrointestinal - No nausea or vomiting. No heartburn or acid reflux. No diarrhea or constipation. No blood in the stool or black stools, Genitourinary (M) - No dysuria or hematuria. No urinary frequency. No urgency or incontinence, Musculoskeletal - He has rheumatoid arthritis, but his joint pain is not bad, Neurologic - No headache or dizziness. No numbness or tingling. No other focal neurologic symptoms, Psychiatric - No anxiety or depression. No insomnia. Vital Signs: Performed on Apr 15, 2020 08:58 Height - 68.00 in Weight - 121.6 lbs (HIGH) BSA - 1.65 sq.m BMI - 18.49 Temperature - 97.7 F (LOW) Pulse - 85 /min Respiration - 16 /min BP - 124/61 mm(hg) O2 Sat - 99 % Pain - 0 Physical Examination: Constitutional - He appears somewhat weak generally, Eyes - Sclerae nonicteric. Conjunctivae clear, ENMT - No lesions noted in the oral cavity, Hematologic/Lymphatic - No cervical, clavicular, or axillary adenopathy, Respiratory - Lungs are clear with some decrease in air movement bilaterally, Cardiovascular - Heart rhythm is regular. There is no murmur, gallop, or rub noted, Abdomen - Soft. Liver and spleen are not enlarged. There is no abdominal mass or ascites noted and there is no inguinal adenopathy, Extremities - No edema, Neurologic - No focal neurologic deficits noted. Lab/Imaging: Test performed on Apr 15, 2020 09:14 Creatinine 0.6 mg/dL Cr Clearance (Est) 96.88 mL/min Test performed on Apr 14, 2020 14:02 WBC 5.1 10 3/uL RBC 4.21 10 6/uL HGB 11.7 g/dL HCT 36.8 % MCV 87.4 fL MCH 27.8 pg MCHC 31.8 g/dL RDW 13.5 % Platelet Count 232 10 3/cmm MPV 9.3 fL Neutrophils 2.29 10 3/uL Lymphocytes 1.5 10 3/uL Monocytes 1.0 10 3/uL Eosinophils 0.2 10 3/uL Basophils 0.0 10 3/uL Neutrophil % 45.2 % Lymphocyte % 29.4 % Monocyte % 20.2 % Eosinophil % 3.2 % Basophils % 0.8 % NRBC % 0 % Impression: 1. 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 A primary source has not been documented, but cervical esophagus would be most likely. 2. He underwent bronchoscopy and esophagoscopy on 03/15/2020 followed by placement of tracheal stent on 03/16/2020. His other medical illnesses include: 3. Hypertension. 4. Dyslipidemia. 5. Rheumatoid arthritis on chronic methotrexate therapy. 6. He has a history of cardiomyopathy, presumed alcohol-related, and he had associated systolic congestive heart failure. 7. He has undergone placement of permanent pacemaker for sick sinus syndrome. On 04/09/2020 he began radiation currently with weekly carboplatin/paclitaxel chemotherapy. Thus far he has tolerated treatment well, and he is beginning to show some symptomatic improvement. He has not yet completed his staging PET/CT. Plan: He will proceed with his week 2 carboplatin/paclitaxel. Dosages remain the same. He will be seen for a follow-up visit in 1 week. In the meantime, he will be scheduled for the staging PET/CT. Signed By: Ravindra Patterson M.D. <<Signature on File>>
--- NOTE | 2020-04-15 14:27 | ONCRAD TMN_ITS ---
Radiation Oncology Weekly Treatment Management Patient: Rocky Woodward MR#: [id number] : 1955 Attending Physician: Dr. 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 Review of Systems: He reported significant improvement in his breathing. Vital Signs: Performed on 04/15/2020 8:58 AM Height - 68.00 in, Weight - 121.6 lbs (high), BSA - 1.65 sq.m, BMI - 18.49, Temperature - 97.7 f (low), Pulse - 85 /min, Respiration - 16 /min, O2 Sat - 99 %, Pain - 0, BP - 124/ 61 mm(hg)(/low), Performed on 04/15/2020 2:04 PM BMI - 18.489 kg/m2 (low), Height - 68.00 in, Weight - 121.6 lbs, Temperature - 97.7 f, Pulse - 85, Respiration - 16, O2 Sat - 99 %, Pain - 0 and BP - 124/ 61 mm(hg)(/low). Physical Exam: Examination of the skin of the neck did not reveal any erythema within the treatment portal vazquez. Imaging: Radiation therapy imaging related to accurate target localization (i.e. KV, MV and CBCT) was reviewed. Appropriate changes, if any, were made to ensure treatment accuracy. Plan: Continue head and neck radiotherapy as prescribed. Signed by: Dr. Alfredo Montero 04/15/2020 2:26:15 PM
--- NOTE | 2020-04-21 15:05 | ONCRAD TMN_ITS ---
Radiation Oncology Weekly Treatment Management Patient: Rocky Woodward MR#: [id number] : 1955 Attending Physician: Alfredo Montero M.D. Date of Service: 04/21/2020 Diagnosis: Esophageal cancer Treatment Site: Thoracic esophagus Dose: 18 Gy of a prescribed 50 Gy. Review of Systems: The patient described the sudden onset of fever with chills and a nonproductive cough. He continues to have odynophagia. Vital Signs: Weight - 122 lbs. Temperature -100.2 F, BP -122/53 (mm Hg). Pulse ??? 94 bpm, Respirations - 22, oxygen saturation was 98% with ambient air Physical Exam: The skin within the treatment vazquez did not demonstrate any erythema. Imaging: Radiation therapy imaging related to accurate target localization (i.e. KV, MV and CBCT) was reviewed. Appropriate changes, if any, were made to ensure treatment accuracy. Plan: Continue esophageal radiotherapy as planned. I will obtain a Covid test given the patient's symptomatology. He is also scheduled for lab work today the medical oncology department. Signed by: Dr. Alfredo Montero 04/21/2020 3:05:04 PM
[2020-04-21 15:59] LABS: Basophils % 0.5 %; Eosinophils % 0.5 %; Hematocrit 32.1 % (42.0-52.0); Hemoglobin 10.6 g/dL (11.7-16.6); Lymphocytes # 0.4 10^3/uL (0.8-4.8); Lymphocytes % 24.2 %; Mean Corpuscular Hemoglobin 27.7 pg (28.0-34.0); Mean Corpuscular Volume 83.8 fL (80-94); Mean Platelet Volume 9.3 fL (7.4-10.4); Monocytes # 1.1 10^3/uL (0.2-0.9); Monocytes % 59.9 %; Neutrophils % 14.9 %; Nucleated Red Blood Cells % 0 %; Platelet Count 195 10^3/cmm (130-400); Red Blood Count 3.83 10^6/uL (4.1-5.3); Red Cell Distribution Width 13.6 % (12.1-15.1); White Blood Count 1.8 10^3/uL (4.0-10.0)
[2020-04-21 16:08] LABS: Neutrophils # 0.27 10^3/uL (1.8-7.7)
[2020-04-21 17:16] LABS: Alanine Aminotransferase 18 U/L (0-41); Albumin Level 3.5 g/dL (3.5-5.2); Alkaline Phosphatase 64 IU/L (40-130); Anion Gap 16.5 (5-19); Aspartate Amino Transferase 18 U/L (0-40); Blood Urea Nitrogen 8 mg/dL (8-23); Calcium 8.4 mg/dL (8.5-10.5); Carbon Dioxide 27 mmol/L (22-29); Chloride 85 mmol/L (98-107); Globulin 2.9 g/dL (1.3-4.6); Glomerular Filtration Rate 167.4 mL/min (90-130); Glucose 113 mg/dL (65-115); Osmolality Calculated 257 mOsm/kg (285-295); Potassium 4.5 mmol/L (3.5-5.1); Sodium 124 mmol/L (136-145); Total Bilirubin 0.6 mg/dL (0.15-1.2); Total Protein 6.4 g/dL (6.6-8.7)
--- NOTE | 2020-04-21 23:23 | ONC FU_ITS ---
[facility] Patient Note Patient: Rocky Woodward Unit #: [id number]: 1955 Dictated By: JOHN ZeeDate of Visit: Apr 21, 2020 Onc MED Follow-Up Telephone Note I spoke with Mr. Woodward late this afternoon in regards to his blood counts. He has his labs drawn the day before his planned chemotherapy as he is here for radiation. His ANC today is 270. His hemoglobin is 10.6 platelets were 195. He had been here for follow-up with radiation therapy and had ran a temperature per radiation therapy nurse report. It is documented at 100.2. Covid testing was initiated by radiation therapy. That is pending at this time. I did speak directly with Mr. Barker and he denied any cough or signs of infection other than the low-grade fever. He states he thought they told him it was 100.1. Nonetheless he is neutropenic. His chemotherapy and radiation therapy will be placed on hold. We will start him on Neupogen 300 mcg daily for the severe chemotherapy-induced neutropenia. Also will start him on Zithromax as it can be obtained and an oral solution so that he can swallow. He states he cannot swallow Levaquin at this time. He has had Levaquin in the past. The Zithromax was called to [facility] here in [place]. After I spoke with Mr. Navarrete and he had presented for his Neupogen, Dr. Patterson returned from seeing patients at a satellite clinic. We discussed Mr. Mascorro's blood counts and current plan of care. Dr. Patterson recommended adding Augmentin to his current antibiotic regimen. We will call this to [facility] and he will pick it up tomorrow. He will be in daily for Neupogen and we will recheck his counts on Monday to determine if he needs further growth factor support or if he may be recovered enough to resume treatment on Monday. Mr. Barker denies any questions or concerns. He will call us if he has any problems or questions arise. He again was instructed if he has fever 100.4 or greater he will need to call us or present to the emergency room. He verbalized understanding. Laboratory:Test performed on Apr 21, 2020 15:20 Sodium 124 mmol/L Potassium 4.5 mmol/L Chloride 85 mmol/L CO2 27 mmol/L Anion Gap 16.5 BUN 8 mg/dL Creatinine 0.5 mg/dL Cr Clearance (Est) 116.2500 mL/min eGFR 167.4 mL/min Glucose 113 mg/dL Osmolality - Calculated 257 mOsm/kg Calcium 8.4 mg/dL Protein, Total 6.4 g/dL Albumin 3.5 g/dL Globulin 2.9 g/dL Bilirubin, Total 0.6 mg/dL ALT (SGPT) 18 U/L AST (SGOT) 18 U/L Alkaline Phosphatase 64 IU/L WBC 1.8 10 3/uL RBC 3.83 10 6/uL HGB 10.6 g/dL HCT 32.1 % MCV 83.8 fL MCH 27.7 pg MCHC 33.0 g/dL RDW 13.6 % Platelet Count 195 10 3/cmm MPV 9.3 fL Neutrophils 0.27 10 3/uL Lymphocytes 0.4 10 3/uL Monocytes 1.1 10 3/uL Eosinophils 0.0 10 3/uL Basophils 0.0 10 3/uL Neutrophil % 14.9 % Lymphocyte % 24.2 % Monocyte % 59.9 % Eosinophil % 0.5 % Basophils % 0.5 % NRBC % 0 % Signed By: JOHN Zee, AODAMIONP Ravindra Patterson M.D. <<Signature on File>>
[2020-04-23 09:38] LABS: Quest SARS-CoV-2 RNA NOT DETECTED (NOT DETECTED)
[2020-04-23] MEDS: levofloxacin-dextrose 5 % 500 MG/100 ML PREMIX 100 MG IV (10:05)
[2020-04-24] MEDS: levofloxacin-dextrose 5 % 500 MG/100 ML PREMIX 100 MG IV (09:43)
[2020-04-24 10:38] LABS: Basophils % 0.5 %; Hematocrit 28.8 % (42.0-52.0); Hemoglobin 9.4 g/dL (11.7-16.6); Lymphocytes # 0.4 10^3/uL (0.8-4.8); Lymphocytes % 22.7 %; Mean Corpuscular HGB Conc 32.6 g/dL (30.0-36.0); Mean Corpuscular Hemoglobin 27.7 pg (28.0-34.0); Mean Platelet Volume 9.3 fL (7.4-10.4); Monocytes # 1.2 10^3/uL (0.2-0.9); Monocytes % 64.3 %; Nucleated Red Blood Cells % 0 %; Platelet Count 189 10^3/cmm (130-400); Red Blood Count 3.39 10^6/uL (4.1-5.3); Red Cell Distribution Width 13.6 % (12.1-15.1); White Blood Count 1.9 10^3/uL (4.0-10.0)
[2020-04-24 11:00] LABS: Alanine Aminotransferase 31 U/L (0-41); Albumin Level 2.8 g/dL (3.5-5.2); Alkaline Phosphatase 68 IU/L (40-130); Anion Gap 11.9 (5-19); Aspartate Amino Transferase 32 U/L (0-40); Blood Urea Nitrogen 8 mg/dL (8-23); Calcium 8.1 mg/dL (8.5-10.5); Carbon Dioxide 30 mmol/L (22-29); Chloride 83 mmol/L (98-107); Globulin 2.6 g/dL (1.3-4.6); Glomerular Filtration Rate 167.4 mL/min (90-130); Glucose 142 mg/dL (65-115); Osmolality Calculated 253 mOsm/kg (285-295); Potassium 3.9 mmol/L (3.5-5.1); Sodium 121 mmol/L (136-145); Total Bilirubin 0.4 mg/dL (0.15-1.2); Total Protein 5.4 g/dL (6.6-8.7)
[2020-04-24 11:09] LABS: Neutrophils # 0.22 10^3/uL (1.8-7.7); Slide Review Slide Review Perform
[2020-04-26] MEDS: levofloxacin-dextrose 5 % 500 MG/100 ML PREMIX 100 MG IV (09:15)
[2020-04-26 09:46] VITALS: BP 106/49; PULSE 73; RESP 20; TEMP 37.4; O2SAT 97
[2020-04-26 10:08] VITALS: BMI 18.9
--- NOTE | 2020-04-27 22:12 | ONC FU_ITS ---
[facility] Patient Note Patient: Rocky Woodward Unit #: [id number]: 1955 Dictated By: Joy ZeeDate of Visit: Apr 22, 2020 Onc MED Follow-Up/Prog Note Chief Complaint: Tracheal malignancy. 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 As yet there is no confirmed primary malignancy. He has rheumatoid arthritis for which he has been on chronic methotrexate therapy. In 2019, he had presented with hoarseness, difficulty swallowing, and shortness of breath. He has been seen by Dr. Schmid, and evaluation with neck CT on 03/06/2020 reported a soft tissue mass in the posterior mediastinum measuring 3.68 x 4.31 x 5.73 centimeters. The mass was located anterior to the T1-T3 level. There was associated deviation and compression of the trachea and compression of the esophagus. It appeared to either be arising from or invading the left lobe of the thyroid. There was asymmetry of the vocal cords. Chest CT at that time showed no evidence for associated pulmonary mass lesions and there was no axillary or significant mediastinal adenopathy noted. The visualized portions of liver, adrenal glands, and pancreas appeared unremarkable. On 03/13/2020 he had presented to the emergency room with worsening shortness of breath. He was felt to have impending respiratory failure. He was transferred to [facility] in [facility] for further management, and he was intubated for the transfer. During the transfer he had experienced some seizure-like activity, but on subsequent evaluation by a neurologist, it was felt that this was not true seizures. His further evaluation there included bronchoscopy and esophagoscopy on 03/15/2020, with the bronchoscopy reportedly showing tumor invading or originating from the membranous portion of the trachea and extending from 10 to 15 cm. The upper esophagus appeared normal, the scope was not able to be advanced beyond 20 cm due to extrinsic compression. Biopsies from the trachea showed invasive poorly differentiated carcinoma with strong expression of p63, suggestive of poorly differentiated squamous cell carcinoma. There was also strong cytokeratin 7 expression. The TTF-1 was negative. On 03/16/2020 underwent placement of tracheal stent. He was then discharged home to continue his further treatment locally. His last treatment with carboplatin was on April 15, 2020. Mr. Woodward had labs drawn on April 21, 2020. He is here today for consideration of his third week of carboplatin. He is doing daily radiation as well. He was seen in radiation oncology and he went home prior to her visit here. When I received his labs today I did talk with Dr. Montero in ration oncology to see what his neutrophil count would be to stop his radiation. His ANC today is 270. His white count was 1.8 and hemoglobin was 10.6 platelets were normal at 195,000. During that discussion it was informed that Mr. Barker had been in for follow-up with him and had complained of fever and chills. He apparently was sent for Covid testing. I did call Mr. Lawton to inform him of his ANC of 270 and he was brought back to the clinic and given 1 dose of Neupogen 300 mcg. He was also placed on oral Zithromax as he is having trouble swallowing and could not swallow Levaquin. He states he is just been having some chills. He denies any productive cough or urinary changes. He has no obvious signs of infection at this time. He states he is tired and washed out but is still trying to swallow some. His diet is limited. He has been tolerating the Ensure well. He denies any new pain. He denies nausea or vomiting. He denies any neuropathy symptoms at this time. His ECOG is 2. 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 Medications: Atorvastatin Calcium 1 (20 mg) Tablet Oral daily Fiber Tablet Oral daily Folic Acid 1 (1 mg) Tablet Oral daily Lisinopril 1 (2.5 mg) Tablet Oral daily Methotrexate (2.5 mg) Tablet Oral Take as Directed Metoprolol Tartrate 1 (25 mg) Tablet Oral b.i.d. Multivitamin 1 Tablet Oral daily Family History: Mr. Lyonss mother is : Neurolgical at age 90. Mr. Lyonss father is : Blood Disorder at age 65. Mr. Woodward has 3 brothers: 3 . Mr. Woodward's first brother's myocardial. Another brother's alcohol. Another brother's larynx. He has 1 sister who is alive. Father at age 65 with of some type of hematologic disorder. Mother with a neurological condition at age 90. He had 3 brothers. One of heart attack, another of alcoholism, and another of laryngeal cancer. He has 1 sister who is living, but her health status is unknown to the patient. Social History: Mr. Woodward is single and he is an unknown. Mr. Woodward quit smoking less than one year ago but had smoked 1.0 pack/day for 45 years. He is a former drinker. He has indicated exposure to the following products: cigarettes. He has a history of smoking 1 pack of cigarettes daily for 40 years, though he had quit for a while during that time. He quit again in March 2020. He had a long history of heavy alcohol use, but he quit drinking 6 years ago. He also has a prior history of methamphetamine abuse. Review Of Symptoms: Constitutional Denies fevers, chills, night sweats, excessive fatigue or weight loss. Allergic/Immunologic No reactions. Eyes Denies significant visual changes. No diplopia. No amaurosis. ENMT Denies changes in hearing, sore throat, mouth sores, difficulty or changes in swallowing ability, and/or sinus drainage. Hematologic/Lymphatic Denies easy bruising or bleeding. The patient denies any tender or palpable lymph nodes. Respiratory Denies dyspnea on exertion, chest pain, cough or hemoptysis. Denies orthopnea. Cardiovascular Denies anginal chest pain, palpitations or orthopnea. Gastrointestinal Denies nausea, vomiting, diarrhea, GI bleeding, or constipation. Denies change in bowel habits and/or stool color, no heartburn or early satiety. Genitourinary (M) Denies hematuria, dysuria, increased frequency, urgency, hesitancy or incontinence. Musculoskeletal Denies joint pain, swelling or redness. No decreased range of motion. Integumentary Denies chronic rashes, inflammation, ulcerations or skin changes. Neurologic Denies headache, blurred vision, and no areas of focal weakness or numbness. Normal gait. No sensory problems. Psychiatric Denies insomnia, depression, merary or mood swings. Vital Signs: Performed on Apr 22, 2020 09:43 Height - 68.00 in Weight - 132.2 lbs (HIGH) BSA - 1.71 sq.m BMI - 20.10 Temperature - 100.4 F (HIGH) Pulse - 99 /min Respiration - 26 /min BP - 121/54 mm(hg) O2 Sat - 96 % Pain - 0,2 - Ambulatory/capable of all self-care, unable to perform any work activities. Up and about more than 50% of waking hours. (ECOG) Laboratory:Test performed on Apr 21, 2020 15:20 Sodium 124 mmol/L Potassium 4.5 mmol/L Chloride 85 mmol/L CO2 27 mmol/L Anion Gap 16.5 BUN 8 mg/dL Creatinine 0.5 mg/dL Cr Clearance (Est) 116.2500 mL/min eGFR 167.4 mL/min Glucose 113 mg/dL Osmolality - Calculated 257 mOsm/kg Calcium 8.4 mg/dL Protein, Total 6.4 g/dL Albumin 3.5 g/dL Globulin 2.9 g/dL Bilirubin, Total 0.6 mg/dL ALT (SGPT) 18 U/L AST (SGOT) 18 U/L Alkaline Phosphatase 64 IU/L WBC 1.8 10 3/uL RBC 3.83 10 6/uL HGB 10.6 g/dL HCT 32.1 % MCV 83.8 fL MCH 27.7 pg MCHC 33.0 g/dL RDW 13.6 % Platelet Count 195 10 3/cmm MPV 9.3 fL Neutrophils 0.27 10 3/uL Lymphocytes 0.4 10 3/uL Monocytes 1.1 10 3/uL Eosinophils 0.0 10 3/uL Basophils 0.0 10 3/uL Neutrophil % 14.9 % Lymphocyte % 24.2 % Monocyte % 59.9 % Eosinophil % 0.5 % Basophils % 0.5 % NRBC % 0 % Impression: 1. 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 A primary source has not been documented, but cervical esophagus would be most likely. 2. He underwent bronchoscopy and esophagoscopy on 03/15/2020 followed by placement of tracheal stent on 03/16/2020. His other medical illnesses include: 3. Hypertension. 4. Dyslipidemia. 5. Rheumatoid arthritis on chronic methotrexate therapy. 6. He has a history of cardiomyopathy, presumed alcohol-related, and he had associated systolic congestive heart failure. 7. He has undergone placement of permanent pacemaker for sick sinus syndrome. On 04/09/2020 he began radiation currently with weekly carboplatin/paclitaxel chemotherapy. Thus far he has tolerated treatment well, and he is beginning to show some symptomatic improvement. He has not yet completed his staging PET/CT. Plan: 1. We will plan to hold his week 3 chemo and radiation due to his neutropenia. His ANC from 04/21/2020 was 270. His COVID-19 from 04-21-2020 is pending. 2. He was started on oral Zithromax and then Augmentin was later added per Dr. Patterson's request. 3. He will have Neupogen 300 mcg today and then daily and recheck his blood counts on Monday. 4. We will plan to give him IV Levaquin for 3 days in addition to the antibiotics-starting 04/22/2020 as he will be in for Neupogen. He does not slate picker the Augmentin. 5. We will plan to recheck his blood counts on Monday to determine if he needs further Neupogen over the weekend. 6. We will plan to recheck his labs on Monday, April 27, 2020 for consideration of resuming chemo/radiation at that time. 6. Mr. Woodward he understands that his radiation is also put on hold temporarily. 7. He is advised of neutropenic precautions and advised to call us if he has any signs or symptoms of infection, fever greater than 100.4 or any concerns. If he continues to run fever on the antibiotics he may need further admission. Signed By: Joy Zee-, CNP Ravindra Patterson MD <<Signature on File>>
== END 2020-04-25 09:00 | disposition home or self-care (01) ==
LOC: ONCMED 05:46
PROVIDERS: Absent Provider Radiology Radiation Oncology; PCP Family Medicine; Visit Provider Internal Medicine Medical Oncology
DX: Z51.0 Encounter for antineoplastic radiation therapy (principal); Z51.11 Encounter for antineoplastic chemotherapy; C80.1 Malignant (primary) neoplasm, unspecified; C78.39 Secondary malignant neoplasm of other respiratory organs; Z20.828 Contact with and (suspected) exposure to other viral communicable diseases; R50.9 Fever, unspecified; R05 Cough; R13.10 Dysphagia, unspecified; D70.1 Agranulocytosis secondary to cancer chemotherapy; T45.1X5A Adverse effect of antineoplastic and immunosuppressive drugs, initial encounter; F10.11 Alcohol abuse, in remission; F19.11 Other psychoactive substance abuse, in remission; I10 Essential (primary) hypertension; E78.5 Hyperlipidemia, unspecified; M06.9 Rheumatoid arthritis, unspecified; Z79.899 Other long term (current) drug therapy; Z79.2 Long term (current) use of antibiotics; Z87.891 Personal history of nicotine dependence; Z95.0 Presence of cardiac pacemaker
CPT/HCPCS: 36415; 77336; 77386; 80053; 85025; 87635; 96365; 96367; 96372; 96413; 96417; 99214; J1100; J1200; J1442; J1956; J2469; J3490; J7030; J7050; J9045; J9267

== ENCOUNTER 2020-04-25 09:09 | Outpatient (CLI) | payer MEDICARE, SELFPAY ==
[2020-04-25] MEDS: levofloxacin-dextrose 5 % 500 MG/100 ML PREMIX 100 MG IV (09:45)
[2020-04-25 10:05] VITALS: BP 109/57; PULSE 84; RESP 18; TEMP 36.8; O2SAT 97; BMI 18.9
== END 2020-04-25 09:10 | disposition home or self-care (01) ==
LOC: OPS 09:13
PROVIDERS: PCP Family Medicine; Visit Provider Internal Medicine Medical Oncology
DX: C78.39 Secondary malignant neoplasm of other respiratory organs (principal)
CPT/HCPCS: 96365; 96372; J1442; J1956

== ENCOUNTER 2020-05-04 05:18 | Outpatient (RCR) | payer MEDICARE, SELFPAY ==
[2020-04-27 15:43] LABS: Basophils # 0.1 10^3/uL (0.0-0.1); Basophils % 0.3 %; Eosinophils % 0.2 %; Hematocrit 32.8 % (42.0-52.0); Hemoglobin 10.4 g/dL (11.7-16.6); Lymphocytes # 1.7 10^3/uL (0.8-4.8); Lymphocytes % 11.6 %; Mean Corpuscular HGB Conc 31.7 g/dL (30.0-36.0); Mean Corpuscular Hemoglobin 27.6 pg (28.0-34.0); Mean Platelet Volume 9.6 fL (7.4-10.4); Monocytes # 2.8 10^3/uL (0.2-0.9); Monocytes % 19.1 %; Neutrophils # 9.67 10^3/uL (1.8-7.7); Neutrophils % 67.4 %; Nucleated Red Blood Cells % 0 %; Platelet Count 183 10^3/cmm (130-400); Red Blood Count 3.77 10^6/uL (4.1-5.3); Red Cell Distribution Width 14.2 % (12.1-15.1); White Blood Count 14.4 10^3/uL (4.0-10.0)
[2020-04-27 16:00] LABS: Alanine Aminotransferase 30 U/L (0-41); Albumin Level 3.3 g/dL (3.5-5.2); Alkaline Phosphatase 96 IU/L (40-130); Anion Gap 13.2 (5-19); Aspartate Amino Transferase 20 U/L (0-40); Blood Urea Nitrogen 8 mg/dL (8-23); Calcium 8.3 mg/dL (8.5-10.5); Carbon Dioxide 31 mmol/L (22-29); Chloride 95 mmol/L (98-107); Globulin 2.4 g/dL (1.3-4.6); Glomerular Filtration Rate 216.6 mL/min (90-130); Glucose 122 mg/dL (65-115); Osmolality Calculated 280 mOsm/kg (285-295); Potassium 4.2 mmol/L (3.5-5.1); Sodium 135 mmol/L (136-145); Total Bilirubin 0.3 mg/dL (0.15-1.2); Total Protein 5.7 g/dL (6.6-8.7)
[2020-04-27 18:20] LABS: Slide Review Slide Review Perform
--- NOTE | 2020-04-28 15:08 | ONCRAD TMN_ITS ---
Radiation Oncology Weekly Treatment Management Patient: Crissy Hidalgo MR#: [id number] : 1955 Attending Physician: Alfredo Montero M.D. Date of Service: 04/28/2020 Diagnosis: Esophageal cancer Treatment Site: Thoracic esophagus Dose: 20 Gy of a prescribed 60 Gy Review of Systems: The patient reported worsening odynophagia. Vital Signs: Weight - 118 lbs. Temperature -98.3 F, BP -113/69 (mm Hg). Pulse ??? 78 bpm, Respirations - 20, oxygen saturation was 98% with ambient air Mild erythema of the treatment vazquez. Imaging: Radiation therapy imaging related to accurate target localization (i.e. KV, MV and CBCT) was reviewed. Appropriate changes, if any, were made to ensure treatment accuracy. Plan: Continue esophageal radiotherapy as prescribed. The patient???s PCR Covid-19 test was negative. I will prescribe codeine elixir (5 mg/ 5 mL) for the complaint of odynophagia. Signed by: Dr. Alfredo Montero 04/28/2020 3:07:07 PM
[2020-04-29] MEDS: sodium chloride 0.9% 250 ML 75 ML IV (11:00)
--- NOTE | 2020-04-29 21:30 | ONC FU_ITS ---
[facility] Patient Note Patient: Rocky Woodward Unit #: [id number]: 1955 Dictated By: Joy ZeeDate of Visit: Apr 29, 2020 Onc MED Follow-Up/Prog Note Chief Complaint: Tracheal malignancy. 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 As yet there is no confirmed primary malignancy. He has rheumatoid arthritis for which he has been on chronic methotrexate therapy. Approximately a month ago he had presented with hoarseness, difficulty swallowing, and shortness of breath. He has been seen by Dr. Schmid, and evaluation with neck CT on 03/06/2020 reported a soft tissue mass in the posterior mediastinum measuring 3.68 x 4.31 x 5.73 centimeters. The mass was located anterior to the T1-T3 level. There was associated deviation and compression of the trachea and compression of the esophagus. It appeared to either be arising from or invading the left lobe of the thyroid. There was asymmetry of the vocal cords. Chest CT at that time showed no evidence for associated pulmonary mass lesions and there was no axillary or significant mediastinal adenopathy noted. The visualized portions of liver, adrenal glands, and pancreas appeared unremarkable. On 03/13/2020 he had presented to the emergency room with worsening shortness of breath. He was felt to have impending respiratory failure. He was transferred to [facility] in [facility] for further management, and he was intubated for the transfer. During the transfer he had experienced some seizure-like activity, but on subsequent evaluation by a neurologist, it was felt that this was not true seizures. His further evaluation there included bronchoscopy and esophagoscopy on 03/15/2020, with the bronchoscopy reportedly showing tumor invading or originating from the membranous portion of the trachea and extending from 10 to 15 cm. The upper esophagus appeared normal, the scope was not able to be advanced beyond 20 cm due to extrinsic compression. Biopsies from the trachea showed invasive poorly differentiated carcinoma with strong expression of p63, suggestive of poorly differentiated squamous cell carcinoma. There was also strong cytokeratin 7 expression. The TTF-1 was negative. On 03/16/2020 underwent placement of tracheal stent. He was then discharged home to continue his further treatment locally. Mr. Woodward began his first cycle of chemotherapy with carboplatin paclitaxel as part of his concurrent regimen with radiation therapy on April 09, 2020. He was able to complete 2 weekly doses of the carboplatin paclitaxel but on week 3 was found to be significantly neutropenic with an ANC of 270. He was placed on IV Levaquin and oral Zithromax and given Neupogen daily for 4 days. On April 24, 2020 his ANC was 220. The Neupogen and IV Levaquin were continued over the weekend and his blood counts were rechecked on 04/27/2020. His ANC at that time was 9670. He denied any fever or chills during his neutropenic period. He did not have any signs or symptoms of infection. He states his appetite is okay but it is hard to swallow at times. But he states overall his breathing is much better. His activity is good and that he can do all of his ADLs without assistance. He tires easily but recovers okay with rest. He denies any nausea or vomiting. He has had no rashes or skin lesions. He denies any neuropathy. He states he has not had any diarrhea or constipation. His ECOG is 1. We did discuss his PET/CT from 04/18/2020. There is a 5 x 5.1 x 7.3 cm mass surrounding the proximal trachea with an SUV of 23.6, consistent with the described poorly differentiated carcinoma. There was mild activity in the mid esophagus at the level of the anuel that has an SUV of 4.9 but the radiologist felt that this was most likely inflammatory. There was no evidence of any other disease. I discussed, per Dr. Patterson's request, with Mr. Navarrete that this could be thyroid or esophageal but is not considered a head and neck cancer. His treatment plan will not change currently. 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 Medications: Atorvastatin Calcium 1 (20 mg) Tablet Oral daily Fiber Tablet Oral daily Lisinopril 1 (2.5 mg) Tablet Oral daily Metoprolol Tartrate 1 (25 mg) Tablet Oral b.i.d. Multivitamin 1 Tablet Oral daily Family History: Mr. Woodward's mother is : Neurolgical at age 90. Mr. Woodward's father is : Blood Disorder at age 65. Mr. Woodward has 3 brothers: 3 . Mr. Woodward's first brother's myocardial. Another brother's alcohol. Another brother's larynx. He has 1 sister who is alive. Father at age 65 with of some type of hematologic disorder. Mother with a neurological condition at age 90. He had 3 brothers. One of heart attack, another of alcoholism, and another of laryngeal cancer. He has 1 sister who is living, but her health status is unknown to the patient. Social History: Mr. Woodward is single and he is an unknown. Mr. Woodward quit smoking less than one year ago but had smoked 1.0 pack/day for 45 years. He is a former drinker. He has indicated exposure to the following products: cigarettes. He has a history of smoking 1 pack of cigarettes daily for 40 years, though he had quit for a while during that time. He quit again in March 2020. He had a long history of heavy alcohol use, but he quit drinking 6 years ago. He also has a prior history of methamphetamine abuse. Review Of Symptoms: Constitutional Denies fevers, chills, night sweats, excessive fatigue or weight loss. Allergic/Immunologic No reactions. Eyes Denies significant visual changes. No diplopia. No amaurosis. ENMT Denies changes in hearing, sore throat, mouth sores. Swallowing is better Hematologic/Lymphatic Denies easy bruising or bleeding. The patient denies any tender or palpable lymph nodes. Respiratory Denies dyspnea on exertion, chest pain, cough or hemoptysis. Denies orthopnea. Breathing is much better overall. Cardiovascular Denies anginal chest pain, palpitations or orthopnea. Gastrointestinal Denies nausea, vomiting, diarrhea, GI bleeding, or constipation. Denies change in bowel habits and/or stool color, no heartburn or early satiety. Genitourinary (M) Denies hematuria, dysuria, increased frequency, urgency, hesitancy or incontinence. Musculoskeletal Denies joint pain, swelling or redness. No decreased range of motion. Integumentary Denies chronic rashes, inflammation, ulcerations or skin changes. Neurologic Denies headache, blurred vision, and no areas of focal weakness or numbness. Normal gait. No sensory problems. Psychiatric Denies insomnia, depression, merary or mood swings. Vital Signs: Performed on Apr 29, 2020 13:45 Height - 68.00 in Temperature - 98.1 F (LOW) Pulse - 81 /min Respiration - 18 /min BP - 116/56 mm(hg) O2 Sat - 98 % Pain - 0 Fatigue - 0 Performed on Apr 29, 2020 09:44 Height - 68.00 in Weight - 118.2 lbs (HIGH) BSA - 1.63 sq.m BMI - 17.97 (LOW) Temperature - 97.8 F (LOW) Pulse - 92 /min Respiration - 18 /min BP - 111/54 mm(hg) O2 Sat - 98 % Pain - 0,1 - No physically strenuous activity, but ambulatory and able to carry out light or sedentary work (e.g. office work, light house work). (ECOG) Physical Examination: Constitutional Alert, oriented, no acute distress. Skin pink, warm and dry. Head Normocephalic; atraumatic. Eyes Conjunctivae and sclerae are clear and without icterus. Pupils are reactive and equal. Neck Supple without masses or thyromegaly. No jugular venous distension. Hematologic/Lymphatic No petechiae or purpura. Respiratory Lungs are clear to auscultation without rhonchi or wheezing. Cardiovascular Regular rate and rhythm of heart without murmurs,clicks, gallops or rubs. Back/Spine Non-tender to palpation. Extremities No visible deformities, no cyanosis, clubbing or edema. Musculoskeletal No tenderness or swelling, normal range of motion without obvious weakness. Integumentary No rashes or lesions. Neurologic No sensory or motor deficits, normal cerebellar function, normal gait. Psychiatric Alert and oriented times three. Coherent speech. Verbalizes understanding of our discussions today. Laboratory:Test performed on Apr 27, 2020 14:55 Sodium 135 mmol/L Potassium 4.2 mmol/L Chloride 95 mmol/L CO2 31 mmol/L Anion Gap 13.2 BUN 8 mg/dL Creatinine 0.4 mg/dL Cr Clearance (Est) 145.3200 mL/min eGFR 216.6 mL/min Glucose 122 mg/dL Osmolality - Calculated 280 mOsm/kg Calcium 8.3 mg/dL Protein, Total 5.7 g/dL Albumin 3.3 g/dL Globulin 2.4 g/dL Bilirubin, Total 0.3 mg/dL ALT (SGPT) 30 U/L AST (SGOT) 20 U/L Alkaline Phosphatase 96 IU/L WBC 14.4 10 3/uL RBC 3.77 10 6/uL HGB 10.4 g/dL HCT 32.8 % MCV 87.0 fL MCH 27.6 pg MCHC 31.7 g/dL RDW 14.2 % Platelet Count 183 10 3/cmm MPV 9.6 fL Neutrophils 9.67 10 3/uL Lymphocytes 1.7 10 3/uL Monocytes 2.8 10 3/uL Eosinophils 0.0 10 3/uL Basophils 0.1 10 3/uL Neutrophil % 67.4 % Lymphocyte % 11.6 % Monocyte % 19.1 % Eosinophil % 0.2 % Basophils % 0.3 % NRBC % 0 % CBC Slide Review Slide Review Perform Impression: 1. 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 A primary source has not been documented, but cervical esophagus would be most likely. 2. He underwent bronchoscopy and esophagoscopy on 03/15/2020 followed by placement of tracheal stent on 03/16/2020. His other medical illnesses include: 3. Hypertension. 4. Dyslipidemia. 5. Rheumatoid arthritis on chronic methotrexate therapy. 6. He has a history of cardiomyopathy, presumed alcohol-related, and he had associated systolic congestive heart failure. 7. He has undergone placement of permanent pacemaker for sick sinus syndrome. On 04/09/2020 he began radiation currently with weekly carboplatin/paclitaxel chemotherapy. Thus far he has tolerated treatment well, and he is beginning to show some symptomatic improvement. He completed his staging PET/CT on 04/18/2020. The PET CT reported a 5 x 5.1 x 7.3 cm mass surrounding the proximal trachea with an SUV of 23.6. There was mild activity in the mid esophagus at the level of the anuel with an SUV of 4.9 but the radiologist felt that this was most likely inflammatory. There is no other sign of disease. Mr. Woodward has only been able to complete 2 weeks of weekly carboplatin Taxol due to significant chemo induced neutropenia. His ANC on 04/21/2020 was 270 and his chemo and radiation were placed on hold until his counts recovered. He did receive IV antibiotics and grow factor support. His ANC on 04/27/2020 was 9600. Plan: 1. Proceed with week 3 Carboplatin/Taxol at reduced dosing. 2. Steroid compliance confirmed. 3. Labs from 04/27/2020 were reviewed in detail discussed with Mr. Woodward and a copy was given to him. WBC 14.4 hemoglobin 10.4 platelets 183,000 ANC is 9670. Potassium 4.2 random glucose 122 creatinine 0.4 LFTs were normal. 4. I did not give him growth factor support as day 2 and 3 are holidays. We will check his blood counts on Monday and pursue growth factor support at that time if needed. 5. Mr. Woodward will be seen back in 1 week and will determine whether or not he needs another CBC CMP prior to his appointment at that time based on what his labs look like on Monday, May 04, 2020. 6. Mr. oWodward was instructed to call us in the interim if questions or problems arise. I did review with him how to get a hold of the physician on-call over this long holiday weekend. Signed By: Joy Zee-, AOCNP Ravindra Patterson MD <<Signature on File>>
[2020-05-04 14:49] LABS: Basophils % 0.6 %; Eosinophils # 0.1 10^3/uL (0.0-0.8); Eosinophils % 1.2 %; Hematocrit 31.3 % (42.0-52.0); Hemoglobin 9.8 g/dL (11.7-16.6); Lymphocytes # 0.9 10^3/uL (0.8-4.8); Mean Corpuscular HGB Conc 31.3 g/dL (30.0-36.0); Mean Corpuscular Hemoglobin 27.6 pg (28.0-34.0); Mean Corpuscular Volume 88.2 fL (80-94); Monocytes # 0.3 10^3/uL (0.2-0.9); Monocytes % 5.2 %; Nucleated Red Blood Cells % 0 %; Platelet Count 129 10^3/cmm (130-400); Red Blood Count 3.55 10^6/uL (4.1-5.3); Red Cell Distribution Width 14.3 % (12.1-15.1); White Blood Count 5.2 10^3/uL (4.0-10.0)
[2020-05-04 15:09] LABS: Alanine Aminotransferase 20 U/L (0-41); Albumin Level 3.4 g/dL (3.5-5.2); Alkaline Phosphatase 69 IU/L (40-130); Anion Gap 13.4 (5-19); Aspartate Amino Transferase 15 U/L (0-40); Blood Urea Nitrogen 10 mg/dL (8-23); Calcium 8.1 mg/dL (8.5-10.5); Carbon Dioxide 29 mmol/L (22-29); Chloride 96 mmol/L (98-107); Globulin 2.6 g/dL (1.3-4.6); Glomerular Filtration Rate 167.4 mL/min (90-130); Glucose 110 mg/dL (65-115); Osmolality Calculated 278 mOsm/kg (285-295); Potassium 4.4 mmol/L (3.5-5.1); Sodium 134 mmol/L (136-145); Total Bilirubin 0.2 mg/dL (0.15-1.2)
== END 2020-05-04 23:59 | disposition home or self-care (01) ==
LOC: ONCMED 05:18
PROVIDERS: Absent Provider Radiology Radiation Oncology; PCP Family Medicine; Visit Provider Internal Medicine Medical Oncology
DX: Z51.0 Encounter for antineoplastic radiation therapy (principal); C78.39 Secondary malignant neoplasm of other respiratory organs; C80.1 Malignant (primary) neoplasm, unspecified; L58.0 Acute radiodermatitis; Y84.2 Radiological procedure and radiotherapy as the cause of abnormal reaction of the patient, or of later complication, without mention of misadventure at the time of the procedure; R13.10 Dysphagia, unspecified; D70.1 Agranulocytosis secondary to cancer chemotherapy; T45.1X5A Adverse effect of antineoplastic and immunosuppressive drugs, initial encounter; E78.5 Hyperlipidemia, unspecified; M06.9 Rheumatoid arthritis, unspecified; I42.9 Cardiomyopathy, unspecified; I11.0 Hypertensive heart disease with heart failure; I50.20 Unspecified systolic (congestive) heart failure; Z95.0 Presence of cardiac pacemaker; Z79.899 Other long term (current) drug therapy; Z51.11 Encounter for antineoplastic chemotherapy; Z79.52 Long term (current) use of systemic steroids
CPT/HCPCS: 36591; 77336; 77386; 80053; 85025; 96367; 96413; 96417; 99214; J1100; J1200; J2469; J3490; J7030; J7050; J9045; J9267

== ENCOUNTER 2020-06-01 05:32 | Outpatient (RCR) | payer MEDICARE, SELFPAY ==
--- NOTE | 2020-05-05 14:57 | ONCRAD TMN_ITS ---
Radiation Oncology Weekly Treatment Management Patient: Crissy Hidalgo MR#: [id number] : 1955 Attending Physician: Alfredo Montero M.D. Date of Service: 05/05/2020 Diagnosis: Esophageal Cancer Treatment Site: Lower neck and thorax Fraction Number: Total Dose: 26 Gy Start Date: 04/09/2020 Reason for visit: The patient is being seen today as part of their regularly scheduled weekly on treatment visits to assess for acute toxicities from radiotherapy. Review of Systems: Vital Signs: Weight - 122 lbs. Temperature -98.8 F, BP -115/59 (mm Hg). Pulse ??? 77 bpm, Respirations - 18, oxygen saturation was 98% with ambient air Physical Exam: There was no erythema within the treatment vazquez. Imaging: Radiation therapy imaging related to accurate target localization (i.e. KV, MV and CBCT) was reviewed. Appropriate changes, if any, were made to ensure treatment accuracy. Plan: Continue lower neck and thoracic radiotherapy as planned. Signed by: Dr. Alfredo Montero 05/05/2020 2:56:02 PM
[2020-05-06] MEDS: diphenhydrAMINE 50 mg/mL SDV 1mL 25 MG IV (12:20)
[2020-05-06] MEDS: sodium chloride 0.9% (100 ml) 100 ML 75 ML (12:40)
[2020-05-06] MEDS: palonosetron 0.25 mg/5 mL SDV IV (12:45)
[2020-05-06] MEDS: famotidine 20 mg/2 mL INJ IVP (12:55)
[2020-05-11 14:35] LABS: Eosinophils # 0.1 10^3/uL (0.0-0.8); Eosinophils % 3.5 %; Hemoglobin 9.9 g/dL (11.7-16.6); Lymphocytes # 0.5 10^3/uL (0.8-4.8); Lymphocytes % 26.6 %; Mean Corpuscular HGB Conc 31.9 g/dL (30.0-36.0); Mean Corpuscular Hemoglobin 28.1 pg (28.0-34.0); Mean Corpuscular Volume 88.1 fL (80-94); Mean Platelet Volume 8.8 fL (7.4-10.4); Monocytes # 0.3 10^3/uL (0.2-0.9); Monocytes % 13.1 %; Neutrophils # 1.11 10^3/uL (1.8-7.7); Neutrophils % 55.8 %; Nucleated Red Blood Cells % 0 %; Platelet Count 123 10^3/cmm (130-400); Red Blood Count 3.52 10^6/uL (4.1-5.3); Red Cell Distribution Width 15.7 % (12.1-15.1)
[2020-05-11 15:00] LABS: Alanine Aminotransferase 15 U/L (0-41); Albumin Level 3.5 g/dL (3.5-5.2); Alkaline Phosphatase 73 IU/L (40-130); Anion Gap 14.2 (5-19); Aspartate Amino Transferase 13 U/L (0-40); Blood Urea Nitrogen 8 mg/dL (8-23); Calcium 8.5 mg/dL (8.5-10.5); Carbon Dioxide 29 mmol/L (22-29); Chloride 96 mmol/L (98-107); Globulin 2.8 g/dL (1.3-4.6); Glomerular Filtration Rate 167.4 mL/min (90-130); Glucose 169 mg/dL (65-115); Osmolality Calculated 282 mOsm/kg (285-295); Potassium 4.2 mmol/L (3.5-5.1); Sodium 135 mmol/L (136-145); Total Bilirubin 0.3 mg/dL (0.15-1.2); Total Protein 6.3 g/dL (6.6-8.7)
--- NOTE | 2020-05-12 09:50 | ONC FU_ITS ---
[facility] Patient Note Patient: Rocky Woodward Unit #: [id number]: 1955 Dictated By: Joy ZeeDate of Visit: May 06, 2020 Onc MED Follow-Up/Prog Note Chief Complaint: Tracheal malignancy. 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 As yet there is no confirmed primary malignancy. He has rheumatoid arthritis for which he has been on chronic methotrexate therapy. Approximately a month ago he had presented with hoarseness, difficulty swallowing, and shortness of breath. He has been seen by Dr. Schmid, and evaluation with neck CT on 03/06/2020 reported a soft tissue mass in the posterior mediastinum measuring 3.68 x 4.31 x 5.73 centimeters. The mass was located anterior to the T1-T3 level. There was associated deviation and compression of the trachea and compression of the esophagus. It appeared to either be arising from or invading the left lobe of the thyroid. There was asymmetry of the vocal cords. Chest CT at that time showed no evidence for associated pulmonary mass lesions and there was no axillary or significant mediastinal adenopathy noted. The visualized portions of liver, adrenal glands, and pancreas appeared unremarkable. On 03/13/2020 he had presented to the emergency room with worsening shortness of breath. He was felt to have impending respiratory failure. He was transferred to [facility] in [facility] for further management, and he was intubated for the transfer. During the transfer he had experienced some seizure-like activity, but on subsequent evaluation by a neurologist, it was felt that this was not true seizures. His further evaluation there included bronchoscopy and esophagoscopy on 03/15/2020, with the bronchoscopy reportedly showing tumor invading or originating from the membranous portion of the trachea and extending from 10 to 15 cm. The upper esophagus appeared normal, the scope was not able to be advanced beyond 20 cm due to extrinsic compression. Biopsies from the trachea showed invasive poorly differentiated carcinoma with strong expression of p63, suggestive of poorly differentiated squamous cell carcinoma. There was also strong cytokeratin 7 expression. The TTF-1 was negative. On 03/16/2020 underwent placement of tracheal stent. He was then discharged home to continue his further treatment locally. Mr. Woodward began his first cycle of chemotherapy with carboplatin paclitaxel as part of his concurrent regimen with radiation therapy on April 09, 2020. He was able to complete 2 weekly doses of the carboplatin paclitaxel but on week 3 was found to be significantly neutropenic with an ANC of 270. He was placed on IV Levaquin and oral Zithromax and given Neupogen daily for 4 days. On April 24, 2020 his ANC was 220. The Neupogen and IV Levaquin were continued over the weekend and his blood counts were rechecked on 04/27/2020. His ANC at that time was 9670. His PET/CT from 04/18/2020 reports there is a 5 x 5.1 x 7.3 cm mass surrounding the proximal trachea with an SUV of 23.6, consistent with the described poorly differentiated carcinoma. There was mild activity in the mid esophagus at the level of the anuel that has an SUV of 4.9 but the radiologist felt that this was most likely inflammatory. There was no evidence of any other disease. I discussed, per Dr. Patterson's request, with Mr. Woodward that this could be thyroid or esophageal but is not considered a head and neck cancer. His treatment plan will not change currently. Mr. Woodward is here today for follow-up. He is due for cycle 5 carboplatin paclitaxel. He states overall he is feeling much better. He states that shortness of breath is much better . He states that he can walk across the room without feeling significantly short of breath. He is able to do his ADLs without any assistance. He denies any nausea or vomiting. He denies any fever or chills. He has had no known Covid symptoms or exposure. He has no pending Covid test. He states his appetite is good. He has had no concerns with his bowels or bladder. He denies any peripheral neuropathy. He denies any hearing changes. He denies headaches or vision changes. His ECOG is 1. 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 Medications: Atorvastatin Calcium 1 (20 mg) Tablet Oral daily Fiber Tablet Oral daily PRN Lisinopril 1 (2.5 mg) Tablet Oral daily Metoprolol Tartrate 1 (25 mg) Tablet Oral b.i.d. Multivitamin 1 Tablet Oral daily Family History: Mr. Woodward's mother is : Neurolgical at age 90. Mr. Woodward's father is : Blood Disorder at age 65. Mr. Woodward has 3 brothers: 3 . Mr. Woodward's first brother's myocardial. Another brother's alcohol. Another brother's larynx. He has 1 sister who is alive. Father at age 65 with of some type of hematologic disorder. Mother with a neurological condition at age 90. He had 3 brothers. One of heart attack, another of alcoholism, and another of laryngeal cancer. He has 1 sister who is living, but her health status is unknown to the patient. Social History: Mr. Woodward is single and he is an unknown. Mr. Woodward quit smoking less than one year ago but had smoked 1.0 pack/day for 45 years. He is a former drinker. He has indicated exposure to the following products: cigarettes. He has a history of smoking 1 pack of cigarettes daily for 40 years, though he had quit for a while during that time. He quit again in March 2020. He had a long history of heavy alcohol use, but he quit drinking 6 years ago. He also has a prior history of methamphetamine abuse. Review Of Symptoms: Constitutional Denies fevers, chills, night sweats, excessive fatigue or weight loss. Allergic/Immunologic No reactions. Eyes Denies significant visual changes. No diplopia. No amaurosis. ENMT Denies changes in hearing, sore throat, mouth sores. Swallowing is better Hematologic/Lymphatic Denies easy bruising or bleeding. The patient denies any tender or palpable lymph nodes. Respiratory Denies dyspnea on exertion, chest pain, cough or hemoptysis. Denies orthopnea. Breathing is so much better-even from last visit . Cardiovascular Denies anginal chest pain, palpitations or orthopnea. Gastrointestinal Denies nausea, vomiting, diarrhea, GI bleeding, or constipation. Denies change in bowel habits and/or stool color, no heartburn or early satiety. Genitourinary (M) Denies hematuria, dysuria, increased frequency, urgency, hesitancy or incontinence. Musculoskeletal Denies joint pain, swelling or redness. No decreased range of motion. Integumentary Denies chronic rashes, inflammation, ulcerations or skin changes. Neurologic Denies headache, blurred vision, and no areas of focal weakness or numbness. Normal gait. No sensory problems. Psychiatric Denies insomnia, depression, merary or mood swings. Vital Signs: Performed on May 06, 2020 15:10 Height - 68.00 in Temperature - 97 F (LOW) Pulse - 76 /min Respiration - 18 /min BP - 123/67 mm(hg) O2 Sat - 99 % Pain - 0 Fatigue - 0 Performed on May 06, 2020 11:20 Height - 68.00 in Weight - 121.8 lbs BSA - 1.66 sq.m BMI - 18.52 Temperature - 98.3 F (LOW) Pulse - 89 /min Respiration - 18 /min BP - 122/63 mm(hg) O2 Sat - 97 % Pain - 0,1 - No physically strenuous activity, but ambulatory and able to carry out light or sedentary work (e.g. office work, light house work). (ECOG) Physical Examination: Constitutional Alert, oriented, no acute distress. Skin pink, warm and dry. Head Normocephalic; atraumatic. Eyes Conjunctivae and sclerae are clear and without icterus. Pupils are reactive and equal. ENMT No oral exudates, ulcers, masses, thrush or mucositis. Oropharynx clear. Tongue normal. Neck Supple without masses or thyromegaly. No jugular venous distension. Hematologic/Lymphatic No petechiae or purpura. Respiratory Lungs are clear to auscultation without rhonchi or wheezing. Cardiovascular Regular rate and rhythm of heart without murmurs,clicks, gallops or rubs. Abdomen Non-tender, non-distended, no masses or ascites. Good bowel sounds noted in all quads. No guarding or rebound tenderness. No pulsatile masses. Back/Spine Non-tender to palpation. Extremities No visible deformities, no cyanosis, clubbing or edema. Musculoskeletal No tenderness or swelling, normal range of motion without obvious weakness. Integumentary No rashes or lesions. Neurologic No sensory or motor deficits, normal cerebellar function, normal gait. Psychiatric Alert and oriented times three. Coherent speech. Verbalizes understanding of our discussions today. Laboratory:Test performed on May 04, 2020 14:40 Sodium 134 mmol/L Potassium 4.4 mmol/L Chloride 96 mmol/L CO2 29 mmol/L Anion Gap 13.4 BUN 10 mg/dL Creatinine 0.5 mg/dL Cr Clearance (Est) 116.2500 mL/min eGFR 167.4 mL/min Glucose 110 mg/dL Osmolality - Calculated 278 mOsm/kg Calcium 8.1 mg/dL Protein, Total 6.0 g/dL Albumin 3.4 g/dL Globulin 2.6 g/dL Bilirubin, Total 0.2 mg/dL ALT (SGPT) 20 U/L AST (SGOT) 15 U/L Alkaline Phosphatase 69 IU/L WBC 5.2 10 3/uL RBC 3.55 10 6/uL HGB 9.8 g/dL HCT 31.3 % MCV 88.2 fL MCH 27.6 pg MCHC 31.3 g/dL RDW 14.3 % Platelet Count 129 10 3/cmm MPV 9.0 fL Neutrophils 3.90 10 3/uL Lymphocytes 0.9 10 3/uL Monocytes 0.3 10 3/uL Eosinophils 0.1 10 3/uL Basophils 0.0 10 3/uL Neutrophil % 75.0 % Lymphocyte % 17.0 % Monocyte % 5.2 % Eosinophil % 1.2 % Basophils % 0.6 % NRBC % 0 % Test performed on Apr 27, 2020 14:55 CBC Slide Review Slide Review Perform Impression: 1. 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 A primary source has not been documented, but cervical esophagus would be most likely. 2. He underwent bronchoscopy and esophagoscopy on 03/15/2020 followed by placement of tracheal stent on 03/16/2020. His other medical illnesses include: 3. Hypertension. 4. Dyslipidemia. 5. Rheumatoid arthritis on chronic methotrexate therapy. 6. He has a history of cardiomyopathy, presumed alcohol-related, and he had associated systolic congestive heart failure. 7. He has undergone placement of permanent pacemaker for sick sinus syndrome. On 04/09/2020 he began radiation currently with weekly carboplatin/paclitaxel chemotherapy. Thus far he has tolerated treatment well, and he is beginning to show some symptomatic improvement. He completed his staging PET/CT on 04/18/2020. The PET CT reported a 5 x 5.1 x 7.3 cm mass surrounding the proximal trachea with an SUV of 23.6. There was mild activity in the mid esophagus at the level of the anuel with an SUV of 4.9 but the radiologist felt that this was most likely inflammatory. There is no other sign of disease. Mr. Woodward has only been able to complete 2 weeks of weekly carboplatin Taxol due to significant chemo induced neutropenia. His ANC on 04/21/2020 was 270 and his chemo and radiation were placed on hold until his counts recovered. He did receive IV antibiotics and grow factor support. His ANC on 04/27/2020 was 9600. He continued treatment on 04/29/2020. Plan: 1. Poorly differentiated carcinoma involving the trachea: Proceed with week 5 Carboplatin/Taxol at reduced dosing. A. Steroid compliance confirmed. B. Labs from 05/04/2020 were reviewed in detail discussed with Mr. Woodward and a copy was given to him. WBC 5.2, hemoglobin 9.8, platelets 129,000, ANC is 3900. Potassium 4.4 glucose 110 LFTs are normal. His weight is stable at 121.8???is actually up 3 pounds. C. Mr. Woodward will be seen back in 1 week and will have CBC, CMP the day before treatment to make sure his counts are adequate to receive chemotherapy. 2. Mr. Woodward was instructed to call us in the interim if questions or problems arise. Signed By: Joy Zee-, AOP Ravindra Patterson MD <<Signature on File>>
--- NOTE | 2020-05-12 13:45 | ONCRAD TMN_ITS ---
Radiation Oncology Weekly Treatment Management Patient: Rocky Woodward MR#: [id number] : 1955 Attending Physician: Alfredo Montero M.D. Date of Service: 05/12/2020 Diagnosis: Esophageal Cancer Treatment Site: Lower neck and thorax Fraction Number: Total Dose: 36 Gy Start Date: 04/09/2020 Reason for visit: The patient is being seen today as part of their regularly scheduled weekly on treatment visits to assess for acute toxicities from radiotherapy. Review of Systems: He described mild odynophagia. Vital Signs: Weight - 122 lbs. Temperature -98.4 F, BP -130/60 (mm Hg). Pulse ??? 76 bpm, Respirations - 18, oxygen saturation was 98% with ambient air Physical Exam: There was no erythema within the treatment vazquez. Imaging: Radiation therapy imaging related to accurate target localization (i.e. KV, MV and CBCT) was reviewed. Appropriate changes, if any, were made to ensure treatment accuracy. Plan: Continue lower neck and thoracic radiotherapy as prescribed. A prescription for oxycodone elixir has been provided. Signed by: Dr. Alfredo Montero 05/12/2020 1:44:21 PM
--- NOTE | 2020-05-16 22:40 | ONC FU_ITS ---
[facility] Patient Note Patient: Rocky Woodward Unit #: [id number]: 1955 Dictated By: Joy ZeeDate of Visit: May 12, 2020 Onc MED Follow-Up/Prog Note Chief Complaint: Tracheal malignancy. 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 As yet there is no confirmed primary malignancy. He has rheumatoid arthritis for which he has been on chronic methotrexate therapy. Approximately a month ago he had presented with hoarseness, difficulty swallowing, and shortness of breath. He has been seen by Dr. Schmid, and evaluation with neck CT on 03/06/2020 reported a soft tissue mass in the posterior mediastinum measuring 3.68 x 4.31 x 5.73 centimeters. The mass was located anterior to the T1-T3 level. There was associated deviation and compression of the trachea and compression of the esophagus. It appeared to either be arising from or invading the left lobe of the thyroid. There was asymmetry of the vocal cords. Chest CT at that time showed no evidence for associated pulmonary mass lesions and there was no axillary or significant mediastinal adenopathy noted. The visualized portions of liver, adrenal glands, and pancreas appeared unremarkable. On 03/13/2020 he had presented to the emergency room with worsening shortness of breath. He was felt to have impending respiratory failure. He was transferred to [facility] in [facility] for further management, and he was intubated for the transfer. During the transfer he had experienced some seizure-like activity, but on subsequent evaluation by a neurologist, it was felt that this was not true seizures. His further evaluation there included bronchoscopy and esophagoscopy on 03/15/2020, with the bronchoscopy reportedly showing tumor invading or originating from the membranous portion of the trachea and extending from 10 to 15 cm. The upper esophagus appeared normal, the scope was not able to be advanced beyond 20 cm due to extrinsic compression. Biopsies from the trachea showed invasive poorly differentiated carcinoma with strong expression of p63, suggestive of poorly differentiated squamous cell carcinoma. There was also strong cytokeratin 7 expression. The TTF-1 was negative. On 03/16/2020 underwent placement of tracheal stent. He was then discharged home to continue his further treatment locally. Mr. Woodward began his first cycle of chemotherapy with carboplatin paclitaxel as part of his concurrent regimen with radiation therapy on April 09, 2020. He was able to complete 2 weekly doses of the carboplatin paclitaxel but on week 3 was found to be significantly neutropenic with an ANC of 270. He was placed on IV Levaquin and oral Zithromax and given Neupogen daily for 4 days. On April 24, 2020 his ANC was 220. The Neupogen and IV Levaquin were continued over the weekend and his blood counts were rechecked on 04/27/2020. His ANC at that time was 9670. His PET/CT from 04/18/2020 reports there is a 5 x 5.1 x 7.3 cm mass surrounding the proximal trachea with an SUV of 23.6, consistent with the described poorly differentiated carcinoma. There was mild activity in the mid esophagus at the level of the anuel that has an SUV of 4.9 but the radiologist felt that this was most likely inflammatory. There was no evidence of any other disease. I discussed, per Dr. Patterson's request, with Mr. Woodward at his 05/06/2020 visit, that this could be thyroid or esophageal but is not considered a head and neck cancer. His treatment plan will not change currently. Mr. Woodward is here today for follow-up. He is due for cycle 5-day 8 chemotherapy. He has been treated with carboplatin paclitaxel. Unfortunately he has neutropenia with an ANC of 1110. His WBCs are 2.0. He denies any new concerns. He states his appetite is fair. He states he feels pretty good overall. His energy is still marginal but seems to be improving. He states his breathing is better. He is coughing less. He has had no fever or chills. He has had no signs of infection. He denies any known Covid exposure or symptoms. He denies any pending test. He denies any nausea or vomiting. He denies any neuropathy. He has had no trouble swallowing. He denies any pain. His ECOG is 1. 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 Medications: Atorvastatin Calcium 1 (20 mg) Tablet Oral daily Fiber Tablet Oral daily PRN Lisinopril 1 (2.5 mg) Tablet Oral daily Metoprolol Tartrate 1 (25 mg) Tablet Oral b.i.d. Multivitamin 1 Tablet Oral daily Family History: Mr. Woodward's mother is : Neurolgical at age 90. Mr. Woodward's father is : Blood Disorder at age 65. Mr. Woodward has 3 brothers: 3 . Mr. Woodward's first brother's myocardial. Another brother's alcohol. Another brother's larynx. He has 1 sister who is alive. Father at age 65 with of some type of hematologic disorder. Mother with a neurological condition at age 90. He had 3 brothers. One of heart attack, another of alcoholism, and another of laryngeal cancer. He has 1 sister who is living, but her health status is unknown to the patient. Social History: Mr. Woodward is single and he is an unknown. Mr. Woodward quit smoking less than one year ago but had smoked 1.0 pack/day for 45 years. He is a former drinker. He has indicated exposure to the following products: cigarettes. He has a history of smoking 1 pack of cigarettes daily for 40 years, though he had quit for a while during that time. He quit again in March 2020. He had a long history of heavy alcohol use, but he quit drinking 6 years ago. He also has a prior history of methamphetamine abuse. Review Of Symptoms: Constitutional Denies fevers, chills, night sweats, excessive fatigue or weight loss. Allergic/Immunologic No reactions. Eyes Denies significant visual changes. No diplopia. No amaurosis. ENMT Denies changes in hearing, sore throat, mouth sores. Swallowing is better Hematologic/Lymphatic Denies easy bruising or bleeding. The patient denies any tender or palpable lymph nodes. Respiratory Denies dyspnea on exertion, chest pain, cough or hemoptysis. Denies orthopnea. Breathing is improved overall. Cardiovascular Denies anginal chest pain, palpitations or orthopnea. Gastrointestinal Denies nausea, vomiting, diarrhea, GI bleeding, or constipation. Denies change in bowel habits and/or stool color, no heartburn or early satiety. Genitourinary (M) Denies hematuria, dysuria, increased frequency, urgency, hesitancy or incontinence. Musculoskeletal Denies joint pain, swelling or redness. No decreased range of motion. Integumentary Denies chronic rashes, inflammation, ulcerations or skin changes. Neurologic Denies headache, blurred vision, and no areas of focal weakness or numbness. Normal gait. No sensory problems. Psychiatric Denies insomnia, depression, merary or mood swings. Vital Signs: Performed on May 12, 2020 13:34 Height - 68.00 in Weight - 122.0 lbs Temperature - 98.4 F Pulse - 76 Respiration - 18 BP - 130/66 mm(hg) O2 Sat - 98 % Pain - 4 Performed on May 12, 2020 13:34 BMI - 18.55 kg/m2,1 - No physically strenuous activity, but ambulatory and able to carry out light or sedentary work (e.g. office work, light house work). (ECOG) Physical Examination: Constitutional Alert, oriented, no acute distress. Skin pink, warm and dry. Head Normocephalic; atraumatic. Eyes Conjunctivae and sclerae are clear and without icterus. Pupils are reactive and equal. Neck Supple without masses or thyromegaly. No jugular venous distension. Hematologic/Lymphatic No petechiae or purpura. Respiratory Lungs are clear to auscultation without rhonchi or wheezing. Cardiovascular Regular rate and rhythm of heart without murmurs,clicks, gallops or rubs. Abdomen Non-tender, non-distended, no masses or ascites. Good bowel sounds noted in all quads. No guarding or rebound tenderness. No pulsatile masses. Back/Spine Non-tender to palpation. Extremities No visible deformities, no cyanosis, clubbing or edema. Musculoskeletal No tenderness or swelling, normal range of motion without obvious weakness. Integumentary No rashes or lesions. Neurologic No sensory or motor deficits, normal cerebellar function, normal gait. Psychiatric Alert and oriented times three. Coherent speech. Verbalizes understanding of our discussions today. Laboratory:Test performed on May 04, 2020 14:40 Sodium 134 mmol/L Potassium 4.4 mmol/L Chloride 96 mmol/L CO2 29 mmol/L Anion Gap 13.4 BUN 10 mg/dL Creatinine 0.5 mg/dL Cr Clearance (Est) 116.2500 mL/min eGFR 167.4 mL/min Glucose 110 mg/dL Osmolality - Calculated 278 mOsm/kg Calcium 8.1 mg/dL Protein, Total 6.0 g/dL Albumin 3.4 g/dL Globulin 2.6 g/dL Bilirubin, Total 0.2 mg/dL ALT (SGPT) 20 U/L AST (SGOT) 15 U/L Alkaline Phosphatase 69 IU/L WBC 5.2 10 3/uL RBC 3.55 10 6/uL HGB 9.8 g/dL HCT 31.3 % MCV 88.2 fL MCH 27.6 pg MCHC 31.3 g/dL RDW 14.3 % Platelet Count 129 10 3/cmm MPV 9.0 fL Neutrophils 3.90 10 3/uL Lymphocytes 0.9 10 3/uL Monocytes 0.3 10 3/uL Eosinophils 0.1 10 3/uL Basophils 0.0 10 3/uL Neutrophil % 75.0 % Lymphocyte % 17.0 % Monocyte % 5.2 % Eosinophil % 1.2 % Basophils % 0.6 % NRBC % 0 % Impression: 1. 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 A primary source has not been documented, but cervical esophagus would be most likely. 2. He underwent bronchoscopy and esophagoscopy on 03/15/2020 followed by placement of tracheal stent on 03/16/2020. His other medical illnesses include: 3. Hypertension. 4. Dyslipidemia. 5. Rheumatoid arthritis on chronic methotrexate therapy. 6. He has a history of cardiomyopathy, presumed alcohol-related, and he had associated systolic congestive heart failure. 7. He has undergone placement of permanent pacemaker for sick sinus syndrome. On 04/09/2020 he began radiation currently with weekly carboplatin/paclitaxel chemotherapy. Thus far he has tolerated treatment well, and he is beginning to show some symptomatic improvement. He completed his staging PET/CT on 04/18/2020. The PET CT reported a 5 x 5.1 x 7.3 cm mass surrounding the proximal trachea with an SUV of 23.6. There was mild activity in the mid esophagus at the level of the anuel with an SUV of 4.9 but the radiologist felt that this was most likely inflammatory. There is no other sign of disease. Mr. Woodward has only been able to complete 2 weeks of weekly carboplatin Taxol due to significant chemo induced neutropenia. His ANC on 04/21/2020 was 270 and his chemo and radiation were placed on hold until his counts recovered. He did receive IV antibiotics and grow factor support. His ANC on 04/27/2020 was 9600. He continued treatment on 04/29/2020. Plan: 1. Poorly differentiated carcinoma involving the trachea: Hold planned day 8 treatment today due to chemotherapy-induced neutropenia with an ANC of 1110. A. Steroid compliance confirmed. B. Labs from 05/11/2020 were reviewed in detail and discussed with Mr. Woodward and a copy was given to him. WBC 2.0, hemoglobin 9.9, platelets 123,000 ANC is 1100 random glucose 169 creatinine 0.5 potassium 4.2 LFTs are normal. C. Mr. Woodward will be seen back in 1 week and will have CBC, CMP the day before treatment to make sure his counts are adequate to receive chemotherapy. 2. Mr. Woodward was instructed to call us in the interim if questions or problems arise. Signed By: Joy Zee-,[facility] Ravindra Patterson MD <<Signature on File>>
[2020-05-18 08:50] LABS: Basophils % 1.2 %; Hematocrit 33.1 % (42.0-52.0); Hemoglobin 10.6 g/dL (11.7-16.6); Lymphocytes # 0.2 10^3/uL (0.8-4.8); Lymphocytes % 9.2 %; Mean Corpuscular Hemoglobin 28.3 pg (28.0-34.0); Mean Corpuscular Volume 88.5 fL (80-94); Mean Platelet Volume 8.7 fL (7.4-10.4); Monocytes # 0.2 10^3/uL (0.2-0.9); Monocytes % 9.8 %; Neutrophils # 1.29 10^3/uL (1.8-7.7); Neutrophils % 79.2 %; Nucleated Red Blood Cells % 0 %; Platelet Count 219 10^3/cmm (130-400); Red Blood Count 3.74 10^6/uL (4.1-5.3); White Blood Count 1.6 10^3/uL (4.0-10.0)
[2020-05-18 09:19] LABS: Alanine Aminotransferase 12 U/L (0-41); Albumin Level 3.9 g/dL (3.5-5.2); Alkaline Phosphatase 72 IU/L (40-130); Anion Gap 20.4 (5-19); Aspartate Amino Transferase 11 U/L (0-40); Blood Urea Nitrogen 11 mg/dL (8-23); Carbon Dioxide 25 mmol/L (22-29); Chloride 88 mmol/L (98-107); Glomerular Filtration Rate 135.6 mL/min (90-130); Glucose 381 mg/dL (65-115); Osmolality Calculated 283 mOsm/kg (285-295); Potassium 4.4 mmol/L (3.5-5.1); Sodium 129 mmol/L (136-145); Total Bilirubin 0.4 mg/dL (0.15-1.2); Total Protein 6.9 g/dL (6.6-8.7)
[2020-05-18 11:02] LABS: Iron 35 ug/dL (59-158); Magnesium 1.9 mg/dL (1.7-2.3); Total Iron Binding Capacity 232 mcg/dl; Unsaturated Iron Binding 197 ug/dL (112-347)
--- NOTE | 2020-05-18 22:10 | ONC FU_ITS ---
[facility] Patient Note Patient: Rocky Woodward Unit #: [id number]: 1955 Dictated By: Joy ZeeDate of Visit: May 18, 2020 Onc MED Follow-Up/Prog Note Chief Complaint: Tracheal malignancy. 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 As yet there is no confirmed primary malignancy. He has rheumatoid arthritis for which he has been on chronic methotrexate therapy. Approximately a month ago he had presented with hoarseness, difficulty swallowing, and shortness of breath. He has been seen by Dr. Schmid, and evaluation with neck CT on 03/06/2020 reported a soft tissue mass in the posterior mediastinum measuring 3.68 x 4.31 x 5.73 centimeters. The mass was located anterior to the T1-T3 level. There was associated deviation and compression of the trachea and compression of the esophagus. It appeared to either be arising from or invading the left lobe of the thyroid. There was asymmetry of the vocal cords. Chest CT at that time showed no evidence for associated pulmonary mass lesions and there was no axillary or significant mediastinal adenopathy noted. The visualized portions of liver, adrenal glands, and pancreas appeared unremarkable. On 03/13/2020 he had presented to the emergency room with worsening shortness of breath. He was felt to have impending respiratory failure. He was transferred to [facility] in [facility] for further management, and he was intubated for the transfer. During the transfer he had experienced some seizure-like activity, but on subsequent evaluation by a neurologist, it was felt that this was not true seizures. His further evaluation there included bronchoscopy and esophagoscopy on 03/15/2020, with the bronchoscopy reportedly showing tumor invading or originating from the membranous portion of the trachea and extending from 10 to 15 cm. The upper esophagus appeared normal, the scope was not able to be advanced beyond 20 cm due to extrinsic compression. Biopsies from the trachea showed invasive poorly differentiated carcinoma with strong expression of p63, suggestive of poorly differentiated squamous cell carcinoma. There was also strong cytokeratin 7 expression. The TTF-1 was negative. On 03/16/2020 underwent placement of tracheal stent. He was then discharged home to continue his further treatment locally. Mr. Woodward began his first cycle of chemotherapy with carboplatin paclitaxel as part of his concurrent regimen with radiation therapy on April 09, 2020. He was able to complete 2 weekly doses of the carboplatin paclitaxel but on week 3 was found to be significantly neutropenic with an ANC of 270. He was placed on IV Levaquin and oral Zithromax and given Neupogen daily for 4 days. On April 24, 2020 his ANC was 220. The Neupogen and IV Levaquin were continued over the weekend and his blood counts were rechecked on 04/27/2020. His ANC at that time was 9670. His PET/CT from 04/18/2020 reports there is a 5 x 5.1 x 7.3 cm mass surrounding the proximal trachea with an SUV of 23.6, consistent with the described poorly differentiated carcinoma. There was mild activity in the mid esophagus at the level of the anuel that has an SUV of 4.9 but the radiologist felt that this was most likely inflammatory. There was no evidence of any other disease. I discussed, per Dr. Patterson's request, with Mr. Woodward at his 05/06/2020 visit, that this could be thyroid or esophageal but is not considered a head and neck cancer. His treatment plan will not change currently. Mr. Woodward is here today for follow-up. He is due for cycle 5-day 8 chemotherapy as he was delayed last week due to neutropenia with an ANC of 1100. He continues daily radiation therapy. He denies any new concerns. He states his appetite is fair. He states he feels pretty good overall. His energy is still low but better than last week. He states his breathing is better. He is coughing less. He states he a low grade fever of 100.0 over the weekend but it resolved with Tylenol and not recurrence. He denies any chills. He denies any nausea or vomiting. He denies any neuropathy. He denies any pain. He has been having some intermittent leg cramps and Dr Patterson requested iron studies as he is somewhat anemic as well. Pembrolizumab. His last treatment was April 27, 2020. He did have dose reduction of the cisplatin. His ANC of cycle 2-day 1 was 3200. It is 1900 today on day 1 of cycle 3. He reports no new concerns. He did have recurrent mouth sores/irritation with his last treatment. He states that they are not completely gone yet. He also reports that he has been on an antibiotic per Dr. Chandler at their [place] [facility] due to cough/congestion/lower extremity cellulitis. He states his cough is pretty well gone. He has had no fever or chills. He states that the swelling and redness/weeping in his lower legs have pretty much healed . He states a little edema today because he did not take his water pill today because of the drive up here. He denies any new pain. He states he is short of breath and that comes and goes but for the most part seems to be hanging around more often. He states he has noticed that his little bit more short of breath with just minimal exertion. He is able do all his ADLs without assistance. He is still considering bringing his home from the residential care center as she is been able to take her self to the bathroom. He plans to talk more with her and his kids after she is able to get the Covid vaccine whenever that would be. He denies any diarrhea or constipation. He states his bladder is normal for him. His ECOG is 1. 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 Medications: Atorvastatin Calcium 1 (20 mg) Tablet Oral daily Fiber Tablet Oral daily PRN Lisinopril 1 (2.5 mg) Tablet Oral daily Metoprolol Tartrate 1 (25 mg) Tablet Oral b.i.d. Multivitamin 1 Tablet Oral daily Family History: Mr. Woodward's mother is : Neurolgical at age 90. Mr. Woodward's father is : Blood Disorder at age 65. Mr. Woodward has 3 brothers: 3 . Mr. Woodward's first brother's myocardial. Another brother's alcohol. Another brother's larynx. He has 1 sister who is alive. Father at age 65 with of some type of hematologic disorder. Mother with a neurological condition at age 90. He had 3 brothers. One of heart attack, another of alcoholism, and another of laryngeal cancer. He has 1 sister who is living, but her health status is unknown to the patient. Social History: Mr. Woodward is single and he is an unknown. Mr. Woodward quit smoking less than one year ago but had smoked 1.0 pack/day for 45 years. He is a former drinker. He has indicated exposure to the following products: cigarettes. He has a history of smoking 1 pack of cigarettes daily for 40 years, though he had quit for a while during that time. He quit again in March 2020. He had a long history of heavy alcohol use, but he quit drinking 6 years ago. He also has a prior history of methamphetamine abuse. Review Of Symptoms: Musculoskeletal Denies joint pain, swelling or redness. No decreased range of motion. He states he has had intermittent leg cramps that seem to be increasing in frequency. He can walk them off but it is taking longer. Constitutional Denies fevers, chills, night sweats, excessive fatigue or weight loss. Mild fatigue-recovers with rest. 1 episode of low grade temp over the weekend-100.0. He states he took Tylenol and it resolved and did not come back. He has no signs of infection other than the low grade temp. Eyes Denies significant visual changes. No diplopia. No amaurosis. ENMT Denies changes in hearing, sore throat, mouth sores. Swallowing is better Hematologic/Lymphatic Denies easy bruising or bleeding. The patient denies any tender or palpable lymph nodes. Respiratory Denies dyspnea on exertion, chest pain, cough or hemoptysis. Denies orthopnea. Breathing is improved overall. Cardiovascular Denies anginal chest pain, palpitations or orthopnea. Gastrointestinal Denies nausea, vomiting, diarrhea, GI bleeding, or constipation. Denies change in bowel habits and/or stool color, no heartburn or early satiety. Genitourinary (M) Denies hematuria, dysuria, increased frequency, urgency, hesitancy or incontinence. Integumentary Denies chronic rashes, inflammation, ulcerations or skin changes. Neurologic Denies headache, blurred vision, and no areas of focal weakness or numbness. Normal gait. No sensory problems. Psychiatric Denies insomnia, depression, merary or mood swings. Vital Signs: Performed on May 18, 2020 10:21 Height - 68.00 in Temperature - 98.0 F (LOW) Pulse - 86 /min Respiration - 18 /min BP - 114/54 mm(hg) O2 Sat - 98 % Pain - 4,1 - No physically strenuous activity, but ambulatory and able to carry out light or sedentary work (e.g. office work, light house work). (ECOG) Physical Examination: Constitutional Alert, oriented, no acute distress. Skin pink, warm and dry. Head Normocephalic; atraumatic. Eyes Conjunctivae and sclerae are clear and without icterus. Hematologic/Lymphatic No petechiae or purpura. Back/Spine Non-tender to palpation. Extremities No visible deformities, no cyanosis, clubbing or edema. Musculoskeletal No tenderness or swelling, normal range of motion without obvious weakness. Integumentary No rashes or lesions. Neurologic No sensory or motor deficits, normal cerebellar function, normal gait. Psychiatric Alert and oriented times three. Coherent speech. Verbalizes understanding of our discussions today. Laboratory:Test performed on May 18, 2020 08:30 Iron 35 mcg/dL Magnesium 1.9 mg/dL Sodium 129 mmol/L Iron Binding Capacity (TIBC) 232 mcg/dl Potassium 4.4 mmol/L % Iron Saturation 15.0 % Chloride 88 mmol/L CO2 25 mmol/L UIBC 197 mcg/dL Anion Gap 20.4 BUN 11 mg/dL Creatinine 0.6 mg/dL Cr Clearance (Est) 96.8800 mL/min eGFR 135.6 mL/min Glucose 381 mg/dL Osmolality - Calculated 283 mOsm/kg Calcium 9.0 mg/dL Protein, Total 6.9 g/dL Albumin 3.9 g/dL Globulin 3.0 g/dL Bilirubin, Total 0.4 mg/dL ALT (SGPT) 12 U/L AST (SGOT) 11 U/L Alkaline Phosphatase 72 IU/L WBC 1.6 10 3/uL RBC 3.74 10 6/uL HGB 10.6 g/dL HCT 33.1 % MCV 88.5 fL MCH 28.3 pg MCHC 32.0 g/dL RDW 17.0 % Platelet Count 219 10 3/cmm MPV 8.7 fL Neutrophils 1.29 10 3/uL Lymphocytes 0.2 10 3/uL Monocytes 0.2 10 3/uL Eosinophils 0.0 10 3/uL Basophils 0.0 10 3/uL Neutrophil % 79.2 % Lymphocyte % 9.2 % Monocyte % 9.8 % Eosinophil % 0.0 % Basophils % 1.2 % NRBC % 0 % Test performed on Apr 27, 2020 14:55 CBC Slide Review Slide Review Perform Impression: 1. 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 A primary source has not been documented, but cervical esophagus would be most likely. 2. He underwent bronchoscopy and esophagoscopy on 03/15/2020 followed by placement of tracheal stent on 03/16/2020. His other medical illnesses include: 3. Hypertension. 4. Dyslipidemia. 5. Rheumatoid arthritis on chronic methotrexate therapy. 6. He has a history of cardiomyopathy, presumed alcohol-related, and he had associated systolic congestive heart failure. 7. He has undergone placement of permanent pacemaker for sick sinus syndrome. On 04/09/2020 he began radiation currently with weekly carboplatin/paclitaxel chemotherapy. Thus far he has tolerated treatment well, and he is beginning to show some symptomatic improvement. He completed his staging PET/CT on 04/18/2020. The PET CT reported a 5 x 5.1 x 7.3 cm mass surrounding the proximal trachea with an SUV of 23.6. There was mild activity in the mid esophagus at the level of the anuel with an SUV of 4.9 but the radiologist felt that this was most likely inflammatory. There is no other sign of disease. Mr. Woodward has only been able to complete 2 weeks of weekly carboplatin Taxol due to significant chemo induced neutropenia. His ANC on 04/21/2020 was 270 and his chemo and radiation were placed on hold until his counts recovered. He did receive IV antibiotics and grow factor support. His ANC on 04/27/2020 was 9600. He continued treatment on 04/29/2020. His last chemotherapy was on 05/06/2020. He has had persistent neutropenia and chemotherapy has been held. He has been able to proceed with radiation therapy as prescribed. Plan: 1. Poorly differentiated carcinoma involving the trachea: Hold planned day 8 treatment again today due to persistent chemotherapy-induced neutropenia with an ANC of 1300. A. Steroid compliance confirmed resulting in hyperglycemia with a random glucose of 381. Normal LFTs. He is aware of the neutropenic precaution protocol. B. Labs from 05/18/2020 were reviewed in detail and discussed with Mr. Woodward and a copy was given to him. WBC 1.6, hemoglobin 10.6, platelets 219,000 ANC is 1300 random creatinine 0.6, potassium 4.4, LFTs are normal. Iron saturation is 15% iron level is 35. Magnesium is 1.9. C. Mr. Woodward will not pursue any further chemotherapy due to persistently low blood counts. We will complete his chemotherapy plan with his last chemotherapy given on 05/06/2020. 2. Iron deficiency anemia: Newly diagnosed today with iron saturation of 15% and iron level of 35. A. We will attempt to obtain prior authorization for 1 dose of peripheral (IV) Injectafer as he cannot tolerate oral iron due to difficulty swallowing because of the tracheal cancer. B. Leg cramps presumed to be from iron deficiency and will reassess after he receives iron replacement. 3. Followup Plan: He will be scheduled to be seen back in 5 weeks and will have CBC, CMP the day before treatment to make sure his counts are adequate to receive chemotherapy. We will also repeat iron studies at that time. 4. Mr. Woodward was instructed to call us in the interim if questions or problems arise. Signed By: Joy Zee-, AOCNP Ravindra Patterson MD <<Signature on File>>
--- NOTE | 2020-05-19 14:57 | ONCRAD TMN_ITS ---
Radiation Oncology Weekly Treatment Management Patient: Rocky Woodward MR#: [id number] : 1955 Attending Physician: Alfredo Montero M.D. Date of Service: 05/19/2020 Diagnosis: Esophageal Cancer Treatment Site: Lower neck and thorax Fraction Number: Total Dose: 46 Gy Start Date: 04/09/2020 Reason for visit: The patient is being seen today as part of their regularly scheduled weekly on treatment visits to assess for acute toxicities from radiotherapy. Review of Systems: He described mild odynophagia with improvement from his pain medicine. Vital Signs: Weight - 120 lbs. Temperature -98.5 F, BP -129/66 (mm Hg). Pulse ??? 84 bpm, Respirations - 18, oxygen saturation was 98% with ambient air Physical Exam: There was no erythema within the treatment vazquez. Imaging: Radiation therapy imaging related to accurate target localization (i.e. KV, MV and CBCT) was reviewed. Appropriate changes, if any, were made to ensure treatment accuracy. Plan: Continue lower neck and thoracic radiotherapy as planned. Signed by: Dr. Alfredo Montero 05/19/2020 2:55:55 PM
[2020-05-20] MEDS: ferric carboxy (IVPB) 750 MG in sodium chloride 0.9% (100 ml) 100 ML 345 MG IV (15:15)
[2020-05-20] MEDS: sodium chloride 0.9% (100 ml) 100 ML 75 ML (15:15)
[2020-05-26 15:17] LABS: Basophils # 0.1 10^3/uL (0.0-0.1); Basophils % 0.6 %; Eosinophils % 0.3 %; Lymphocytes # 0.6 10^3/uL (0.8-4.8); Lymphocytes % 7.8 %; Mean Corpuscular HGB Conc 32.3 g/dL (30.0-36.0); Mean Corpuscular Hemoglobin 28.7 pg (28.0-34.0); Mean Corpuscular Volume 88.8 fL (80-94); Mean Platelet Volume 8.8 fL (7.4-10.4); Monocytes # 1.1 10^3/uL (0.2-0.9); Monocytes % 13.6 %; Neutrophils # 6.08 10^3/uL (1.8-7.7); Neutrophils % 77.2 %; Nucleated Red Blood Cells % 0 %; Platelet Count 207 10^3/cmm (130-400); Red Blood Count 3.49 10^6/uL (4.1-5.3); White Blood Count 7.9 10^3/uL (4.0-10.0)
--- NOTE | 2020-05-26 15:43 | ONCRAD TMN_ITS ---
Radiation Oncology Weekly Treatment Management Patient: Rocky Woodward MR#: [id number] : 1955 Attending Physician: Alfredo Montero M.D. Date of Service: 05/26/2020 Attending Physician: Alfredo Montero M.D. Date of Service: 05/26/2020 Diagnosis: Esophageal Cancer Treatment Site: Lower neck and thorax Fraction Number: Total Dose: 56 Gy Start Date: 04/09/2020 Reason for visit: The patient is being seen today as part of his regularly scheduled weekly on treatment visits to assess for acute toxicities from radiotherapy. Review of Systems: He described odynophagia. Vital Signs: Weight - 121 lbs. Temperature -99.1 F, BP -118/61 (mm Hg). Pulse ??? 82 bpm, Respirations - 20, oxygen saturation was 97% with ambient air Physical Exam: There was no erythema within the treatment vazquez. Imaging: Radiation therapy imaging related to accurate target localization (i.e. KV, MV and CBCT) was reviewed. Appropriate changes, if any, were made to ensure treatment accuracy. Plan: Continue lower neck and thoracic radiotherapy as planned. A refill for his narcotic prescription was given by medical oncology. Signed by: Dr. Alfredo Montero 05/26/2020 3:41:24 PM
== END 2020-06-04 23:59 | disposition home or self-care (01) ==
LOC: ONCMED 05:32
PROVIDERS: Internal Medicine Medical Oncology; Nurse Practitioner; Absent Provider Radiology Radiation Oncology; PCP Family Medicine; Visit Provider Radiology Radiation Oncology
DX: Z51.0 Encounter for antineoplastic radiation therapy (principal); Z51.11 Encounter for antineoplastic chemotherapy; C78.39 Secondary malignant neoplasm of other respiratory organs; D50.9 Iron deficiency anemia, unspecified; D70.1 Agranulocytosis secondary to cancer chemotherapy; T45.1X5A Adverse effect of antineoplastic and immunosuppressive drugs, initial encounter; I10 Essential (primary) hypertension; E78.5 Hyperlipidemia, unspecified; M06.9 Rheumatoid arthritis, unspecified; I25.5 Ischemic cardiomyopathy; I50.22 Chronic systolic (congestive) heart failure; Z95.0 Presence of cardiac pacemaker; Z79.899 Other long term (current) drug therapy
CPT/HCPCS: 36591; 77300; 77336; 77338; 77386; 80053; 83540; 83550; 83735; 85025; 96365; 96367; 96413; 96417; 99214; J1100; J1200; J1439; J2469; J3490; J7030; J9045; J9267

== ENCOUNTER 2020-06-16 11:47 | Outpatient (CLI) | payer MEDICARE, SELFPAY ==
[2020-06-16 12:22] LABS: Basophils # 0.1 10^3/uL (0.0-0.1); Basophils % 0.6 %; Eosinophils # 0.1 10^3/uL (0.0-0.8); Eosinophils % 0.9 %; Hematocrit 35.7 % (42.0-52.0); Hemoglobin 11.4 g/dL (11.7-16.6); Lymphocytes # 1.7 10^3/uL (0.8-4.8); Lymphocytes % 21.2 %; Mean Corpuscular HGB Conc 31.9 g/dL (30.0-36.0); Mean Corpuscular Hemoglobin 28.9 pg (28.0-34.0); Mean Corpuscular Volume 90.4 fL (80-94); Mean Platelet Volume 8.8 fL (7.4-10.4); Monocytes # 1.7 10^3/uL (0.2-0.9); Monocytes % 20.8 %; Neutrophils # 4.56 10^3/uL (1.8-7.7); Neutrophils % 56.3 %; Nucleated Red Blood Cells % 0 %; Platelet Count 211 10^3/cmm (130-400); Red Blood Count 3.95 10^6/uL (4.1-5.3); Red Cell Distribution Width 17.7 % (12.1-15.1); White Blood Count 8.1 10^3/uL (4.0-10.0)
[2020-06-16 12:39] LABS: Alanine Aminotransferase 10 U/L (0-41); Albumin Level 3.8 g/dL (3.5-5.2); Alkaline Phosphatase 81 IU/L (40-130); Anion Gap 14.3 (5-19); Aspartate Amino Transferase 17 U/L (0-40); Blood Urea Nitrogen 6 mg/dL (8-23); Calcium 9.2 mg/dL (8.5-10.5); Carbon Dioxide 30 mmol/L (22-29); Chloride 93 mmol/L (98-107); Globulin 3.3 g/dL (1.3-4.6); Glomerular Filtration Rate 167.4 mL/min (90-130); Glucose 115 mg/dL (65-115); Osmolality Calculated 275 mOsm/kg (285-295); Potassium 4.3 mmol/L (3.5-5.1); Sodium 133 mmol/L (136-145); Total Bilirubin 0.5 mg/dL (0.15-1.2); Total Protein 7.1 g/dL (6.6-8.7)
--- NOTE | 2020-06-20 13:36 | ONC FU_ITS ---
Dr. Patterson Patient Follow-Up Note Patient: Rocky Woodward Unit #: [id number]: 1955 Dicatated By: Ravindra Patterson M.D.Date of Visit:Jun 16, 2020 Onc Med Follow-up/Prog Note Chief Complaint: Tracheal malignancy. 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 Evaluation showed no definite primary malignancy. He has rheumatoid arthritis for which he has been on chronic methotrexate therapy. He had with hoarseness, difficulty swallowing, and shortness of breath. He has been seen by Dr. Schmid, and evaluation with neck CT on 03/06/2020 reported a soft tissue mass in the posterior mediastinum measuring 3.68 x 4.31 x 5.73 centimeters. The mass was located anterior to the T1-T3 level. There was associated deviation and compression of the trachea and compression of the esophagus. It appeared to either be arising from or invading the left lobe of the thyroid. There was asymmetry of the vocal cords. Chest CT at that time showed no evidence for associated pulmonary mass lesions and there was no axillary or significant mediastinal adenopathy noted. The visualized portions of liver, adrenal glands, and pancreas appeared unremarkable. On 03/13/2020 he had presented to the emergency room with worsening shortness of breath. He was felt to have impending respiratory failure. He was transferred to [facility] in [facility] for further management, and he was intubated for the transfer. During the transfer he had experienced some seizure-like activity, but on subsequent evaluation by a neurologist, it was felt that this was not true seizures. His further evaluation there included bronchoscopy and esophagoscopy on 03/15/2020, with the bronchoscopy reportedly showing tumor invading or originating from the membranous portion of the trachea and extending from 10 to 15 cm. The upper esophagus appeared normal, the scope was not able to be advanced beyond 20 cm due to extrinsic compression. Biopsies from the trachea showed invasive poorly differentiated carcinoma with strong expression of p63, suggestive of poorly differentiated squamous cell carcinoma. There was also strong cytokeratin 7 expression. The TTF-1 was negative. On 03/16/2020 underwent placement of tracheal stent. He was then discharged home to continue his further treatment locally. He was seen here initially on 04/06/2020. Given the findings, we opted to treat him with radiation concurrently with weekly carboplatin/paclitaxel chemotherapy. His treatment started on 04/09/2020. His week 3 chemotherapy was delayed due to neutropenia and respiratory tract infection. He completed radiation on 06/01/2020, total dose 6000 cGy administered over 30 fractions. During that time he was able to complete the total of 4 chemotherapy infusions. His treatment also was complicated by iron deficiency anemia, for which he did receive a single infusion of Injectafer. He is seen for a follow-up visit. He complains that he has a hard time breathing when he first gets up in the morning, enough that he has difficulty taking a shower. He also is having hoarseness. He has difficulty swallowing water or other thin liquids. He does not have good energy, but is able to do some light work. ECOG score is 1. His appetite is fair. His weight is stable. He does not have fever or night sweats. He does have cough productive of white sputum. He has had a little chest pain. He has no GI or complaints. He is having pain in his throat and neck area and he also has pain in the back of his head. He has no focal neurologic symptoms. Medications: Atorvastatin Calcium 1 (20 mg) Tablet Oral daily, Fiber Tablet Oral daily PRN, Lisinopril 1 (2.5 mg) Tablet Oral daily, Metoprolol Tartrate 1 (25 mg) Tablet Oral b.i.d., Multivitamin 1 Tablet Oral daily Allergies: No Known Allergies. Vital Signs: Performed on Jun 16, 2020 12:56 Height - 68.00 in Weight - 121.6 lbs (HIGH) BSA - 1.65 sq.m BMI - 18.49 Temperature - 98.6 F Pulse - 93 /min Respiration - 18 /min BP - 136/58 mm(hg) O2 Sat - 97 % Pain - 0 Physical Examination: Constitutional - He appears somewhat weak generally, Eyes - Sclerae nonicteric. Conjunctivae clear, ENMT - No lesions noted in the oral cavity, Neck - Neck is soft with no mass palpable, Hematologic/Lymphatic - No cervical, clavicular, or axillary adenopathy, Respiratory - Lungs are clear with some decrease in air movement bilaterally and he has coarse upper airway noise with both inspiration and expiration., Cardiovascular - Heart rhythm is regular. There is no murmur, gallop, or rub noted, Abdomen - Soft. Liver and spleen are not enlarged. There is no abdominal mass or ascites noted and there is no inguinal adenopathy, Extremities - No edema, Neurologic - No focal neurologic deficits noted. Lab/Imaging: Test performed on Jun 16, 2020 12:05 Sodium 133 mmol/L Potassium 4.3 mmol/L Chloride 93 mmol/L CO2 30 mmol/L Anion Gap 14.3 BUN 6 mg/dL Creatinine 0.5 mg/dL Cr Clearance (Est) 116.2500 mL/min eGFR 167.4 mL/min Glucose 115 mg/dL Osmolality - Calculated 275 mOsm/kg Calcium 9.2 mg/dL Protein, Total 7.1 g/dL Albumin 3.8 g/dL Globulin 3.3 g/dL Bilirubin, Total 0.5 mg/dL ALT (SGPT) 10 U/L AST (SGOT) 17 U/L Alkaline Phosphatase 81 IU/L WBC 8.1 10 3/uL RBC 3.95 10 6/uL HGB 11.4 g/dL HCT 35.7 % MCV 90.4 fL MCH 28.9 pg MCHC 31.9 g/dL RDW 17.7 % Platelet Count 211 10 3/cmm MPV 8.8 fL Neutrophils 4.56 10 3/uL Lymphocytes 1.7 10 3/uL Monocytes 1.7 10 3/uL Eosinophils 0.1 10 3/uL Basophils 0.1 10 3/uL Neutrophil % 56.3 % Lymphocyte % 21.2 % Monocyte % 20.8 % Eosinophil % 0.9 % Basophils % 0.6 % NRBC % 0 % Historic Problem List: 1. Invasive poorly differentiated carcinoma involving the trachea, most likely secondary neoplasm. A primary source was not documented, but cervical esophagus was felt to be the most likely. 2. He underwent bronchoscopy and esophagoscopy on 03/15/2020 followed by placement of tracheal stent on 03/16/2020. 3. Hypertension. 4. Dyslipidemia. 5. Rheumatoid arthritis on chronic methotrexate therapy. 6. He has a history of cardiomyopathy, presumed alcohol-related, and he had associated systolic congestive heart failure. 7. He has undergone placement of permanent pacemaker for sick sinus syndrome. Problems Addressed with this Encounter and Plan: 1. Invasive poorly differentiated carcinoma involving the trachea, most likely secondary neoplasm. A primary source was not documented, but cervical esophagus was felt to be the most likely. He underwent bronchoscopy and esophagoscopy on 03/15/2020 followed by placement of tracheal stent on 03/16/2020. He began radiation currently with weekly carboplatin/paclitaxel chemotherapy on 04/09/2020. He completed radiation on 06/01/2020 to a total dose of 6000 cGy administered over 30 fractions. His chemotherapy was complicated by neutropenia and respiratory tract infection. He completed a total of 4 chemotherapy infusions. He has not yet been evaluated for response, but he continues to have significant local symptoms associated with the tracheal mass. He will be following up in the near future with Dr. Schmid and he will have a restaging CT scan with that visit. 2. His treatment also was complicated by iron deficiency anemia, for which he received a single infusion of Injectafer. He does need follow-up to verify response. Signed By: Ravindra Patterson M.D. <<Signature on File>>
== END 2020-06-16 11:48 | disposition home or self-care (01) ==
LOC: ONCMED 11:53
PROVIDERS: PCP Family Medicine; Visit Provider Internal Medicine Medical Oncology
DX: C78.39 Secondary malignant neoplasm of other respiratory organs (principal); C80.1 Malignant (primary) neoplasm, unspecified; D70.1 Agranulocytosis secondary to cancer chemotherapy; D64.81 Anemia due to antineoplastic chemotherapy; T45.1X5A Adverse effect of antineoplastic and immunosuppressive drugs, initial encounter; I10 Essential (primary) hypertension; E78.5 Hyperlipidemia, unspecified; M06.9 Rheumatoid arthritis, unspecified; Z79.899 Other long term (current) drug therapy; Z95.0 Presence of cardiac pacemaker; Z92.3 Personal history of irradiation
CPT/HCPCS: 36591; 80053; 85025; 99214

== ENCOUNTER 2020-06-24 12:37 | Outpatient (CLI) | payer MEDICARE, SELFPAY ==
--- NOTE | 2020-06-24 12:41 | CT_ITS ---
WS: [id number] CT NECK TECHNIQUE: Contrast-enhanced CT of the neck with coronal and sagittal reformatted images. CLINICAL INFORMATION: TRACHEAL CANCER FOLLOWUP COMPARISON: CT neck March 06, 2020 and PET/CT April 24, 2020 DLP: 2190.[address] scans at [facility] use at least one of these dose optimization techniques: automat ed exposure control; mA and/or kV adjustment per patient size (includes targeted exams where dose is matched to clinical indication); or iterative reconstruction. 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 Minimal soft tissue induration consistent with treatment-related changes. Tracheal stent in place. Trachea is patent. No cervical lymphadenopathy. Mild asymmetry of the left aryepiglottic fold and left vocal cord is uncha nged. Partially visualized intracranial contents unremarkable. Paranasal sinuses and mastoid air cells are well aerated. Moderate spondylitic changes cervical spine. CT/CT neck w con* [id number] IMPRESSION: 1. Previously described mediastinal mass has essentially resolved compared to previous. Minimal induration consistent with treatment-related changes. 2. No cervical lymphadenopathy. 3. 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 4. Tracheal stent in place.
--- NOTE | 2020-06-24 12:41 | CT_ITS ---
WS: [id number] CT CHEST TECHNIQUE: Contrast enhanced CT of the chest with coronal and sagittal reformatted images. CLINICAL INFORMATION: TRACHEAL CANCER FOLLOWUP COMPARISON: CT chest March 06, 2020, PET CT April 18, 2020 DLP: 580.[address] scans at [facility] use at least one of these dose optimization techniques: automat ed exposure control; mA and/or kV adjustment per patient size (includes targeted exams where dose is matched to clinical indication); or iterative reconstruction. FINDINGS: The previously described FDG avid anterior mediastinal mass in the superior mediastinum has essential ly resolved since the prior examinations. Mild residual soft tissue thickening and induration about t he esophagus and trachea consistent with treatment-related changes. No significant residual soft tiss ue mass. Distal tracheal stent partially visualized. Trachea appears patent. No mediastinal or hilar lymphadenopathy. Normal thyroid gland. Lungs are well aerated. No suspicious parenchymal opacities. Mild thoracic curve. Mild spondylitic changes thoracic spine. No axillary lymp hadenopathy. Adrenal glands are normal. CT/CT chest w con* [id number] IMPRESSION: 1. Previously described anterior mediastinal mass in the superior mediastinum has essentially resolved. No significant residual soft tissue. 2. Mild soft tissue induration in the anterior mediastinum consistent with danny atment-related changes. 3. Partially visualized tracheal stent. 4. No mediastinal or hilar lymphadenopathy. 5. No suspicious pulmonary parenchymal opacities.
[2020-06-24] MEDS: iohexol 300 mg/mL 100 mL Btl IV ×2 (13:01→13:12)
== END 2020-06-24 12:38 | disposition home or self-care (01) ==
PROVIDERS: PCP Family Medicine; Visit Provider Internal Medicine Medical Oncology
DX: C33 Malignant neoplasm of trachea (principal)
CPT/HCPCS: 70491; 71260; Q9967